=== PATIENT | male | born 1965 | race African-American/Black ===

== ENCOUNTER 2022-12-20 07:46 | Outpatient (AMB) | payer OTHER, SELFPAY ==
--- NOTE | 2022-12-20 07:47 | A.OFFPC_ITS ---
Vital Signs 12/20/22 07:48 Height 5 ft 5 in Weight 166 lb BMI 27.6 BP 144/82 H Blood Pressure Location Rt brachial Position Sitting Pulse 102 H Pulse Source Pulse Oximeter Pulse Oximetry (%) 97 Oxygen Delivery Method Room Air Intake Visit Reasons: Est care/ possible physical Intake Note: Patient did not know what meds he was taking. Called pharmacy and put in what was picked up in the last 30 days. Allergies No Known Allergies [No Known Allergies*] Allergy (Verified 05/12/20 07:19) Tobacco use date assessed: 12/20/22 Dental Screening Dental Screen Date: 12/20/22 Did you have a dental visit in the last 12 months?: Yes Did you have a dental problem in the last 6 months where you did not have access to dental care?: No Was dental information given to patient?: Patient has dentist HPI HPI Comments History of Present Illness Details 57-year-old male new patient past medical history significant for HTN, T2DM, hx substance abuse, anxiety, depression. Therapist q2week through [facility] and Psychiatrist [id number]. Patient states residential program through [facility]. Patient states has not had night sleep. Patient advised to follow up with psych. Patient brought lab results drawn from psychiatrist on 12/06/22 showed hgb a1c at 8.8%, patient reports previously on medication for diabetes but hasnt been on it since he was living on the streets. Lab work revealed tota cholesterol 292, LDL 215, HDL 29 and triglycerides of 239. Patient reporst past substance abuse of crack/cocaine last used 4 months ago. Patient reports white layer on penis, denies pain, itching or urinary symptoms. Likely miah infection R/T to uncontrolled DM. [facility] Surgical History No pertinent past surgical history Family History Father No problems noted. Mother No problems noted. Brother No problems noted. Sister No problems noted. Brother No problems noted. Brother No problems noted. Brother No problems noted. Sister No problems noted. Other Mental health disorder Substance use disorder Social History (Updated 12/20/22 @ 08:04 by KRISTINE Zhao) Housing: Other Alcohol intake: never Patient Tobacco Use Status: Current everyday Tobacco user Cigarette Packs Per Day: 0.5 e-Cigarette/Vaping Use: Never Used Second Hand Smoke Exposure: Yes Substance Use Type: Crack/Cocaine Current occupational status: disabled Current occupational exposures/hazards: No Cognitive needs: Yes Hearing needs: No Vision needs: No Questionnaire PHQ-9 Over the last 2 weeks, how often have you been bothered by any of the following problems? 1. Little interest or pleasure in doing things: several days 2. Feeling down, depressed, or hopeless: several days 3. Trouble falling or staying asleep, or sleeping too much: nearly every day 4. Feeling tired or having little energy: several days 5. Poor appetite or overeating: not at all 6. Feeling bad about yourself - or that you are a failure or have let yourself or your family down: not at all 7. Trouble concentrating on things, such as reading the newspaper or watching television: not at all 8. Moving or speaking so slowly that other people could have noticed. Or the opposite - being so fidgety or restless that you have been moving around a lot more than usual: not at all 9. Thoughts that you would be better off or of hurting yourself in some way: not at all Total score: 6 Depression Screening Interpretation: Positive 76180 - PHQ-9 Billing: Yes Source: Developed by Drs. Mehdi Randolph, Sabrina Gonzalez, Tutu Eckert and colleagues, with an educational camryn from [employer]. Thrive Questionnaire Date Thrive assessed: 12/20/22 I am a: Patient What is your living situation today?: I have a steady place to live Within the past 12 months, did the food you bought not last and you didn't have the money to get more?: Never true Within the past 12 months, did you worry whether your food would run out before you got money to buy more?: Never true Do you have trouble paying for medicines?: No Do you have trouble getting transportation to medical appointments?: No Do you have trouble paying your heating and electricity bill?: No Do you have trouble taking care of your child, family member or friend?: No Do you have trouble with day-to-day activities such as bathing, preparing meals, shopping, managing finances, etc.?: No Are you currently unemployed and looking for a job?: No Are you interested in more education?: No Currently or been in a relationship where the following occur: no concerns reported AUDIT C Alcohol Use Questionnaire (AUDIT-C) 1. How often do you have a drink containing alcohol?: Never 3. How often do you have six or more drinks on one occasion?: Never Total Score: 0 NORMA-7 AMB Questionnaire NORMA-7 Date NORMA - 7 assessed: 12/20/22 Feeling nervous, anxious, or on edge: 1 = Several days Not being able to stop or control worryin = Not at all Worrying too much about different things: 0 = Not at all Trouble relaxin = Not at all Being so restless that it is hard to sit still: 0 = Not at all Becoming easily annoyed or irritable: 0 = Not at all Feeling afraid as if something awful might happen: 0 = Not at all Total NORMA-7 score (0-4 normal; 5-9 mild; 10-14 moderate; 15-21 severe): 1 Source: Developed by Drs. Mehdi Randolph, Sabrina Gonzalez, Tutu Eckert and colleagues, with an educational camryn from [employer]. NORMA-7 Assessment Billing NORMA-7 Assessment Tool: NORMA-7 Assessment 82007 Review of Systems Const Denies chills, Denies fatigue, Denies fever(s) and Denies poor appetite Eyes Denies no additional complaints ENT Reports Normal hearing present Card Denies chest pain, Denies syncope, Denies rapid heart rate and Denies dyspnea Resp Denies cough and Denies dyspnea GI Denies change in stool character, Denies constipation, Denies diarrhea, Denies nausea and Denies vomiting Denies dysuria, Denies urinary frequency and Denies urinary urgency Skin/Breast Details: white mist under foreskin Neuro Reports Normal hearing present, Denies confusion and Denies syncope Psych Denies confusion Endo Denies fatigue Physical exam (Primary Care) Vital Signs: Last Vital Signs Pulse 102 H 12/20/22 07:48 BP 144/82 H 12/20/22 07:48 Pulse Ox 97 12/20/22 07:48 Oxygen Delivery Method Room Air 12/20/22 07:48 BMI result Body Mass Index 27.6 Tobacco/Smoking Status: Tobacco use Status Tobacco use date assessed 12/20/22 12/20/22 07:56 Patient Tobacco Use Status Current everyday Tobacco 12/20/22 08:04 e-Cigarette/Vaping Use Never Used 12/20/22 08:04 PHQ-9: PHQ-9 Score PHQ-9: Total score 6 12/20/22 08:26 Depression Screening Interpretation: Positive Thrive Assessment: Date of Thrive Assessment Date Thrive assessed 12/20/22 12/20/22 07:56 Currently or been in a relationship where the following occur: no concerns reported Const General: No confusion Orientation/consciousness: No confusion HENMT Head: Yes normocephalic and Yes atraumatic Eyes Conjunctivae: conjunctivae normal Chest Chest palpation & inspection: normal inspection of the chest Resp Effort & Inspection: normal respiratory effort Auscultation: clear to auscultation bilaterally, no crackles, no rhonchi and no wheezes Cardio Rate: regular rate Rhythm: regular rhythm Heart sounds: S1 normal heart sound present and S2 normal heart sound present GI Inspection: Yes normal to inspection Penis: uncircumcised Meatus: other (white coating under foreskin ) Neuro General: No confusion Cranial nerves: Yes Normal hearing present Extrem General: No edema Assessment and Plan Assessment & Plan (1) Type 2 diabetes mellitus: Code(s): E11.9 - Type 2 diabetes mellitus without complications Plan: Hemoglobin A1c 8.8%. Will start patient on metformin 500 mg daily and follow-up in 3 months (2) Depression: Code(s): F32.A - Depression, unspecified Plan: Continue to follow with and therapist and psychiatry. Continue on current medications. (3) Generalized anxiety disorder: Code(s): F41.1 - Generalized anxiety disorder Plan: Continue to follow with and therapist and psychiatry. Continue on current medications. (4) Hypertension: Code(s): I10 - Essential (primary) hypertension Plan: Continue on amlodipine 5 mg daily. Refill sent to patient's pharmacy. Follow low-salt diet and exercise. (5) Hyperlipidemia: Code(s): E78.5 - Hyperlipidemia, unspecified Plan: Refill sent on atorvastatin 40 mg daily. LDL goal less than 100. Repeat fasting blood work in 3 months (6) Candidal balanitis: Code(s): B37.42 - Candidal balanitis Plan: Clomitazole cream prescribed b.i.d. x2 weeks. Plan Follow-up in 3 months for physical exam. Orders: Orders Comprehensive [place]. Panel Fast 3 Months I10 - Essential (primary) hypertension Lipid Panel 3 Months Z13.220 - Encounter for screening for lipoid disorders Hemoglobin A1c 3 Months E11.9 - Type 2 diabetes mellitus without complications TSH reflex Free T4 3 Months Z13.29 - Encounter for screening for other suspected endocrine disorder Microalbumin, Random (w Creat) 3 Months E11.9 - Type 2 diabetes mellitus without complications Medications: New simvastatin 40 mg PO DAILY 30 tabs 3RF E78.5 - Hyperlipidemia, unspecified amlodipine 5 mg PO DAILY 30 tabs 3RF metformin 500 mg PO DAILY 30 tabs 3RF E11.9 - Type 2 diabetes mellitus without complications clotrimazole 1% x2 weeks 1 appl topical BID 30 grams 0RF B37.42 - Candidal balanitis Coding Level of Care Code New Pt Level 4 (61064) Diagnoses Type 2 diabetes mellitus E11.9 Depression F32.A Generalized anxiety disorder F41.1 Hypertension I10 Hyperlipidemia E78.5 Candidal balanitis B37.42 Additional Codes NORMA-7 Assessment Billing - NORMA-7 Assessment Tool: NORMA-7 Assessment 79436 ([id number])
[2022-12-20 07:48] VITALS: BP 144/82; PULSE 102; O2SAT 97; BMI 27.6
== END 2022-12-20 08:23 | disposition home or self-care (01) ==
PROVIDERS: PCP Nurse Practitioner Family; Visit Provider Nurse Practitioner Family
DX: Z00.00 Encounter for general adult medical examination without abnormal findings (principal); E11.9 Type 2 diabetes mellitus without complications; I10 Essential (primary) hypertension; F32.A Depression, unspecified; F41.1 Generalized anxiety disorder; E78.5 Hyperlipidemia, unspecified; B37.42 Candidal balanitis
CPT/HCPCS: 99386

== ENCOUNTER 2023-06-13 17:25 | Outpatient (AMB) | payer OTHER, SELFPAY ==
[2023-06-13 17:26] VITALS: BP 118/84; PULSE 80; O2SAT 95; BMI 29.0
--- NOTE | 2023-06-13 17:26 | MHC.PC.OV ---
Vital Signs 06/13/23 17:26 Height 5 ft 5 in Weight 174 lb BMI 29.0 BP 118/84 Blood Pressure Location Lt brachial Position Sitting Pulse 80 Pulse Source Pulse Oximeter Pulse Oximetry (%) 95 Oxygen Delivery Method Room Air Intake Visit Reasons: A1C Instructional Aide Required: No Accompanied by: Self / Same As Patient Allergies No Known Allergies [No Known Allergies*] Allergy (Verified 06/14/23 03:26) Medication List - Last Reconciled 06/14/23 by Higinio Jones MD amlodipine 5 mg PO DAILY atorvastatin 40 mg PO BEDTIME 90 days clotrimazole 1% 1 appl topical BID diphenhydramine HCl (Benadryl) 50 mg PO BEDTIME PRN lithium carbonate 600 mg PO BEDTIME lithium carbonate 150 mg PO BEDTIME metformin 500 mg PO DAILY mirtazapine 7.5 mg PO BEDTIME olanzapine 10 mg PO BEDTIME trazodone 50 mg PO BEDTIME PRN Tobacco use date assessed: 06/13/23 Dental Screening Dental Screen Date: 06/13/23 Did you have a dental visit in the last 12 months?: Yes Did you have a dental problem in the last 6 months where you did not have access to dental care?: No Was dental information given to patient?: Patient has dentist HPI A1C HPI Details Patient comes in today for his follow up visit He was a previous patient of Dr. Rubalcava but has not been back for follow up from 07/2019 through 12/2022 Between 07/2019 and 12/2022, he's had a few visits to the ER at [facility] for psychological issues, including threatening violence to others and suicidal ideation (running into traffic) Patient used to live in a shelter house but for approximately a period of 7 to 8 months back in 2021, was apparently living on the streets and was actively using crack cocaine and smoking marijuana as well as drinking alcohol although he denies any addiction and declined referral to detox when offered to him at the ER He was started on Simvastatin for high cholesterol and Metformin for elevated blood sugar when he was recently seen by [facility] back in December 2022 and he returns today for his follow up visit States that he had his follow up labs done at [facility] a couple of weeks ago He was reportedly staying at a residential program in [facility] last year and recently moved here to [place] He denies any headaches or dizziness lately Denies any chest pains, no shortness of breath No nausea / vomiting, no abdominal pain No change in bowel habits noted Adds that he has very thickened disfigured toenails on both of his big toes and they are starting to hurt - would like to see if he can his disfigured and painful toenails addressed [facility] Medical History (Updated 06/14/23 @ 04:18 by Higinio Jones MD) Insomnia Overweight (BMI 25.0-29.9) Smoker Bipolar depression Substance use disorder Essential hypertension Diabetes mellitus Mixed hyperlipidemia Surgical History No pertinent past surgical history Family History Father No problems noted. Mother No problems noted. Brother No problems noted. Sister No problems noted. Brother No problems noted. Brother No problems noted. Brother No problems noted. Sister No problems noted. Other Mental health disorder Substance use disorder Social History Housing: Other Alcohol intake: never Patient Tobacco Use Status: Current everyday Tobacco user Cigarette Packs Per Day: 0.5 e-Cigarette/Vaping Use: Never Used Second Hand Smoke Exposure: Yes Substance Use Type: Crack/Cocaine service: No Current occupational status: disabled Current occupational exposures/hazards: No Cognitive needs: Yes Hearing needs: No Vision needs: No Questionnaire PHQ-9 Over the last 2 weeks, how often have you been bothered by any of the following problems? 1. Little interest or pleasure in doing things: several days 2. Feeling down, depressed, or hopeless: several days 3. Trouble falling or staying asleep, or sleeping too much: nearly every day 4. Feeling tired or having little energy: several days 5. Poor appetite or overeating: not at all 6. Feeling bad about yourself - or that you are a failure or have let yourself or your family down: not at all 7. Trouble concentrating on things, such as reading the newspaper or watching television: not at all 8. Moving or speaking so slowly that other people could have noticed. Or the opposite - being so fidgety or restless that you have been moving around a lot more than usual: not at all 9. Thoughts that you would be better off or of hurting yourself in some way: not at all Total score: 6 Depression Screening Interpretation: Positive Depression Screening Follow-up: Existing condition and In treatment Depression Screening Done: Yes 83967 - PHQ-9 Billing: Yes Source: Developed by Drs. Mehdi Randolph, Sabrina Gonzalez, Tutu Eckert and colleagues, with an educational camryn from [email or web address]. Thrive Questionnaire Date Thrive assessed: 06/13/23 I am a: Patient What is your living situation today?: I have a steady place to live Within the past 12 months, did the food you bought not last and you didn't have the money to get more?: Never true Within the past 12 months, did you worry whether your food would run out before you got money to buy more?: Never true Do you have trouble paying for medicines?: No Do you have trouble getting transportation to medical appointments?: No Do you have trouble paying your heating and electricity bill?: No Do you have trouble taking care of your child, family member or friend?: No Do you have trouble with day-to-day activities such as bathing, preparing meals, shopping, managing finances, etc.?: No Are you currently unemployed and looking for a job?: No Are you interested in more education?: No Please select the resources that you would like help with: None Currently or been in a relationship where the following occur: no concerns reported THRIVE Score: 0 AUDIT C Alcohol Use Questionnaire (AUDIT-C) 1. How often do you have a drink containing alcohol?: Never (has not had alcohol in months) 3. How often do you have six or more drinks on one occasion?: Never Total Score: 0 Score Reviewed/Action Taken: Yes NORMA-7 AMB Questionnaire NORMA-7 Date NORMA - 7 assessed: 06/13/23 Feeling nervous, anxious, or on edge: 1 = Several days Not being able to stop or control worryin = Not at all Worrying too much about different things: 0 = Not at all Trouble relaxin = Not at all Being so restless that it is hard to sit still: 0 = Not at all Becoming easily annoyed or irritable: 0 = Not at all Feeling afraid as if something awful might happen: 0 = Not at all Total NORMA-7 score (0-4 normal; 5-9 mild; 10-14 moderate; 15-21 severe): 1 Source: Developed by Drs. Mehdi Randolph, Sabrina Gonzalez, Tutu Eckert and colleagues, with an educational camryn from [email or web address]. NORMA-7 Assessment Billing NORMA-7 Assessment Tool: NORMA-7 Assessment 45729 Review of Systems Const Denies chills, Reports fatigue, Denies fever(s) and Denies headache(s) ENT Denies dysphagia, Denies dizziness, Denies otalgia, Denies headache(s), Denies neck pain, Denies odynophagia and Denies sore throat Card Denies chest pain, Denies palpitations and Denies dyspnea Resp Denies cough and Denies dyspnea GI Denies abdominal pain, Denies constipation, Denies dysphagia, Denies heartburn, Denies diarrhea, Denies nausea, Denies odynophagia and Denies vomiting Denies dysuria, Denies nocturia and Denies urinary frequency Musc Denies neck pain Skin/Breast Details: (+) thick and disfigured toenails on both big toes - states that the toenails are starting to hurt recently as they become more disfigured Denies rash Neuro Denies dizziness and Denies headache(s) Endo Reports fatigue and Denies palpitations Physical exam (Primary Care) Vital Signs: Last Vital Signs Pulse 80 06/13/23 17:26 BP 118/84 06/13/23 17:26 Pulse Ox 95 06/13/23 17:26 Oxygen Delivery Method Room Air 06/13/23 17:26 BMI result Body Mass Index 29.0 Tobacco/Smoking Status: Tobacco use Status Tobacco use date assessed 06/13/23 06/13/23 17:31 Patient Tobacco Use Status Current everyday Tobacco 06/13/23 17:31 e-Cigarette/Vaping Use Never Used 06/13/23 17:31 PHQ-9: PHQ-9 Score PHQ-9: Total score 6 06/13/23 17:43 Depression Screening Interpretation: Positive Depression Screening Follow-up: Existing condition and In treatment Thrive Assessment: Date of Thrive Assessment Date Thrive assessed 06/13/23 06/13/23 17:31 Currently or been in a relationship where the following occur: no concerns reported Const General: no acute distress and alert HENMT Ears: TM's normal bilaterally and EAC's normal Throat: Yes posterior oropharynx normal and Yes tonsils normal (no TP congestion) Neck Neck: Yes no lymphadenopathy and Yes supple Resp Auscultation: clear to auscultation bilaterally, no rales and no wheezes Cardio Rate: regular rate Rhythm: regular rhythm Heart sounds: no murmurs GI Palpation (GI): Soft to palpation, nontender and No hepatosplenomegaly present Skin General skin exam: no rashes or lesions noted Extrem Other: (+) severe onycholysis of the toenails on both big toes General: Yes no clubbing, cyanosis or edema Assessment and Plan Assessment & Plan (1) Mixed hyperlipidemia: Code(s): E78.2 - Mixed hyperlipidemia Plan: Results of his labs done at [facility] a couple of weeks ago reviewed and discussed with patient - he is advised that his cholesterol levels have increased from previous Reinforced low cholesterol diet Patient states that he has been taking his Simvastatin 40 mg daily as prescribed although he reportedly has had issues with non-compliance with meds in the past Will try switching her from Simvastatin to Atorvastatin 40 mg QD for better efficacy Will have patient recheck his labs and fasting lipids in 3 months for follow up (2) Diabetes mellitus: Code(s): E11.9 - Type 2 diabetes mellitus without complications Qualifiers: Diabetes mellitus type: type 2 Diabetes mellitus fci insulin use: without entertainment production professional use Diabetes mellitus complication status: without complication Qualified Code(s): E11.9 - Type 2 diabetes mellitus without complications Plan: His HgbA1c was at 6.6% on his labs done a couple of weeks ago (was at 8.8% back in November 2022) - goal is <7.0% Reinforced diabetic diet Continue Metformin 500 mg QD (3) Essential hypertension: Code(s): I10 - Essential (primary) hypertension Plan: Reinforced low sodium diet - goal is systolic BP of 120 mm or less Continue Amlodipine 5 mg QD (4) Onychomycosis of toenail: Code(s): B35.1 - Tinea unguium Plan: Involving both big toes primarily Will refer him to podiatry for further evaluation and management and also for his diabetic foot exam (5) Substance use disorder: Code(s): F19.90 - Other psychoactive substance use, unspecified, uncomplicated Plan: (+) Hx of alcohol, marijuana and crack cocaine - states that he has been clean and sober for a few months now Denies any history of addiction or dependence and has not needed to go to detox He has been living in a residential program through [facility] in [place] and recently moved here to [place] (6) Insomnia: Code(s): G47.00 - Insomnia, unspecified Qualifiers: Insomnia type: unspecified Qualified Code(s): G47.00 - Insomnia, unspecified Plan: Sleep hygiene reinforced Continue Diphenhydramine 50 mg Q HS and Trazodone 50 mg Q HS He is also on Mirtazapine and Olanzapine at bedtime, which help as well (he has taken Zolpidem in the past) (7) Bipolar depression: Code(s): F31.9 - Bipolar disorder, unspecified Plan: Continue Olanzapine 10 mg Q HS, Mirtazapine 7.5 mg Q HS and [place] 750 mg (600 + 150 mg) QD Follow up with psychiatry as scheduled (8) Smoker: Code(s): F17.200 - Nicotine dependence, unspecified, uncomplicated Plan: Counseled on smoking cessation (9) Overweight (BMI 25.0-29.9): Code(s): E66.3 - Overweight Plan: Reinforced diet/exercise as tolerated/lose weight Plan Follow up in 3 months Orders: Orders Complete Blood Count Auto Diff 3 Months D64.9 - Anemia, unspecified Comprehensive [place]. Panel Fast 3 Months E78.00 - Pure hypercholesterolemia, unspecified TSH reflex Free T4 3 Months E78.00 - Pure hypercholesterolemia, unspecified Vitamin D 25-OH Total 3 Months E55.9 - Vitamin D deficiency, unspecified Microalbumin, Random (w Creat) 3 Months E11.9 - Type 2 diabetes mellitus without complications Lipid Panel 3 Months E78.00 - Pure hypercholesterolemia, unspecified Hemoglobin A1c 3 Months E11.9 - Type 2 diabetes mellitus without complications UA CC w/rflx Micro + Cult 3 Months R30.0 - Dysuria Referrals Podiatry Referral B35.1 - Tinea unguium Medications: New atorvastatin 40 mg PO BEDTIME 90 tabs 1RF 90 days Discontinued simvastatin Discontinued Reason: Doctor's Order 40 mg PO DAILY 30 tabs 3RF E78.5 - Hyperlipidemia, unspecified Coding Level of Care Code Est Pt Level 4 (30395) Diagnoses Mixed hyperlipidemia E78.2 Type 2 diabetes mellitus without complication, without long-term current use of insulin E11.9 Diabetes mellitus type: type 2 Diabetes mellitus entertainment production professional insulin use: without entertainment production professional use Diabetes mellitus complication status: without complication Essential hypertension I10 Onychomycosis of toenail B35.1 Substance use disorder F19.90 Insomnia, unspecified type G47.00 Insomnia type: unspecified Bipolar depression F31.9 Smoker F17.200 Overweight (BMI 25.0-29.9) E66.3 Additional Codes NORMA-7 Assessment Billing - NORMA-7 Assessment Tool: NORMA-7 Assessment [id number] ([id number])
== END 2023-06-13 17:44 | disposition home or self-care (01) ==
LOC: HO.HMGH 17:25
PROVIDERS: PCP Internal Medicine; Visit Provider Internal Medicine
DX: E78.2 Mixed hyperlipidemia (principal); E11.9 Type 2 diabetes mellitus without complications; F31.9 Bipolar disorder, unspecified; I10 Essential (primary) hypertension; B35.1 Tinea unguium; F19.90 Other psychoactive substance use, unspecified, uncomplicated; G47.00 Insomnia, unspecified; F17.210 Nicotine dependence, cigarettes, uncomplicated; E66.3 Overweight
CPT/HCPCS: 96127; 99214

== ENCOUNTER 2023-09-19 13:46 | Outpatient (AMB) | payer OTHER, SELFPAY ==
[2023-09-19 13:52] VITALS: BP 110/76; PULSE 92; O2SAT 96; BMI 27.5
--- NOTE | 2023-09-19 13:52 | MHC.PC.OV ---
Vital Signs 09/19/23 13:52 Height 5 ft 5 in Weight 165 lb 0.8 oz BMI 27.5 BP 110/76 Blood Pressure Location Lt brachial Position Sitting Pulse 92 Pulse Source Pulse Oximeter Pulse Oximetry (%) 96 Oxygen Delivery Method Room Air Intake Visit Reasons: yperlipidemia,onychomycosis,prediabetes,bipolar Intake Note: Patient is here to follow up Pattern Changer Required: No Allergies No Known Allergies [No Known Allergies*] Allergy (Verified 09/19/23 15:25) Medication List - Last Reconciled 09/19/23 by Higinio Jones MD amlodipine 5 mg PO DAILY atorvastatin 40 mg PO BEDTIME 90 days clotrimazole 1% 1 appl topical BID diphenhydramine HCl (Benadryl) 50 mg PO BEDTIME PRN lithium carbonate 600 mg PO BEDTIME lithium carbonate 150 mg PO BEDTIME melatonin 5 mg PO BEDTIME metformin 500 mg PO DAILY mirtazapine 7.5 mg PO BEDTIME olanzapine 10 mg PO BEDTIME trazodone 50 mg PO BEDTIME PRN zolpidem 5 mg PO BEDTIME PRN Tobacco use date assessed: 09/19/23 Dental Screening Dental Screen Date: 09/19/23 Did you have a dental visit in the last 12 months?: Yes Did you have a dental problem in the last 6 months where you did not have access to dental care?: No Was dental information given to patient?: Patient has dentist HPI yperlipidemia,onychomycosis,prediabetes,bipolar HPI Details Patient comes in today for his follow up visit States that he has a few issues that he would like to have addressed He has a recurrent rash on the left side of neck recently and would like to know if he can use Clotrimazole on the rash and if he can, will need this refilled States that he has trouble sleeping at night for a while now and [facility] is suggesting that he get a sleep study Adds that his ears feel full and most everything he hears nowadays are significantly muffled and decreased - would like to have his ears checked out States that he has been experiencing increased pain in his left shoulder lately - he does not recall any recent injury or trauma to his left shoulder He denies any headaches or dizziness Denies any chest pains, no SOB No nausea/vomiting, no abdominal pain No change in bowel habits noted Needs his Atorvastatin Rx refilled Had his follow up labs done at [facility] about 2 to 3 weeks ago - to discuss his results [facility] Medical History (Updated 11/03/23 @ 07:00 by Higinio Jones MD) Albuminuria Diabetes mellitus with albuminuria Insomnia Overweight (BMI 25.0-29.9) Smoker Bipolar depression Substance use disorder Essential hypertension Diabetes mellitus Mixed hyperlipidemia Surgical History No pertinent past surgical history Family History Father No problems noted. Mother No problems noted. Brother No problems noted. Sister No problems noted. Brother No problems noted. Brother No problems noted. Brother No problems noted. Sister No problems noted. Other Mental health disorder Substance use disorder Social History Housing: Other Alcohol intake: never Patient Tobacco Use Status: Current everyday Tobacco user Cigarette Packs Per Day: 0.5 e-Cigarette/Vaping Use: Never Used Second Hand Smoke Exposure: Yes Substance Use Type: Crack/Cocaine service: No Current occupational status: disabled Current occupational exposures/hazards: No Cognitive needs: Yes Hearing needs: No Vision needs: No Questionnaire Thrive Questionnaire Date Thrive assessed: 09/19/23 I am a: Patient What is your living situation today?: I have a steady place to live Within the past 12 months, did the food you bought not last and you didn't have the money to get more?: Never true Within the past 12 months, did you worry whether your food would run out before you got money to buy more?: Never true Do you have trouble paying for medicines?: No Do you have trouble getting transportation to medical appointments?: No Do you have trouble paying your heating and electricity bill?: No Do you have trouble taking care of your child, family member or friend?: No Do you have trouble with day-to-day activities such as bathing, preparing meals, shopping, managing finances, etc.?: No Are you currently unemployed and looking for a job?: No Are you interested in more education?: No Please select the resources that you would like help with: None Currently or been in a relationship where the following occur: no concerns reported THRIVE Score: 0 AUDIT C Alcohol Use Questionnaire (AUDIT-C) 1. How often do you have a drink containing alcohol?: Never (has not had alcohol in months) 3. How often do you have six or more drinks on one occasion?: Never Total Score: 0 Score Reviewed/Action Taken: Yes NORMA-7 AMB Questionnaire NORMA-7 Date NORMA - 7 assessed: 06/13/23 Source: Developed by Drs. Mehdi Randolph, Sabrina Gonzalez, Tutu Eckert and colleagues, with an educational camryn from [employer]. Review of Systems Const Denies chills, Reports difficulty sleeping, Denies fatigue, Denies fever(s) and Denies headache(s) ENT Denies dysphagia, Denies dizziness, Denies otalgia, Denies headache(s), Reports hearing loss (ears feel muffled/sounds he hears are significantly diminished), Denies neck pain, Denies odynophagia and Denies sore throat Card Denies chest pain, Denies palpitations and Denies dyspnea Resp Denies cough and Denies dyspnea GI Denies abdominal pain, Denies constipation, Denies dysphagia, Denies heartburn, Denies diarrhea, Denies nausea, Denies odynophagia and Denies vomiting Denies dysuria, Denies nocturia and Denies urinary frequency Musc Reports arthralgias (in the left shoulder lately) and Denies neck pain Skin/Breast Reports rash (recurrent over the left side of his neck) Neuro Denies dizziness and Denies headache(s) Endo Denies fatigue and Denies palpitations Physical exam (Primary Care) Vital Signs: Last Vital Signs Pulse 92 09/19/23 13:52 BP 110/76 09/19/23 13:52 Pulse Ox 96 09/19/23 13:52 Oxygen Delivery Method Room Air 09/19/23 13:52 BMI result Body Mass Index 27.5 Tobacco/Smoking Status: Tobacco use Status Tobacco use date assessed 09/19/23 09/19/23 13:53 Patient Tobacco Use Status Current everyday Tobacco 09/19/23 13:53 e-Cigarette/Vaping Use Never Used 09/19/23 13:53 Thrive Assessment: Date of Thrive Assessment Date Thrive assessed 09/19/23 09/19/23 13:53 Currently or been in a relationship where the following occur: no concerns reported Const General: no acute distress and alert HENMT Ears: Abnormal EAC present cerumen impaction bilateral and unable to visualize TM bilaterally Throat: Yes posterior oropharynx normal and Yes tonsils normal (no TP congestion) Neck Neck: Yes no lymphadenopathy and Yes supple Thyroid: Thyroid normal Resp Auscultation: clear to auscultation bilaterally, no rales and no wheezes Cardio Rate: regular rate Rhythm: regular rhythm Heart sounds: no murmurs GI Palpation (GI): Soft to palpation and nontender Auscultation: normal bowel sounds General: Yes no CVA tenderness Back/Spine/Pelvis Back: no CVA tenderness Thoracic/Lumbar Spine: No lumbar spinal tenderness Skin Rashes: rashes noted (small, slightly hypopigmented patch of rash on the left side of the neck) Extrem General: Yes no clubbing, cyanosis or edema Left upper extremity: shoulder/upper arm Details: tenderness Location: of the A-C joint and normal ROM; no swelling Results AMB Hemoglobin A1c AMB Hemoglobin A1c 10.6 % Last Edit by LUIS FERNANDO Smyth on 09/19/23 14:56 Results Reviewed Results Reviewed: Laboratory Last Values Hgb A1c (Clinic) 10.6 % (4.0-6.0) H 09/19/23 13:54 Assessment and Plan Assessment & Plan (1) Mixed hyperlipidemia: Code(s): E78.2 - Mixed hyperlipidemia Plan: Results of his labs done at [facility] Labs 2 to 3 weeks ago reviewed and discussed with patient Reinforced low cholesterol diet Continue Atorvastatin 40 mg QD - Rx refilled Will recheck his labs and fasting lipids in 3 months for follow up (2) Diabetes mellitus: Code(s): E11.9 - Type 2 diabetes mellitus without complications Qualifiers: Diabetes mellitus complication status: without complication Diabetes mellitus exterminator termite insulin use: without exterminator termite use Diabetes mellitus type: type 2 Qualified Code(s): E11.9 - Type 2 diabetes mellitus without complications Plan: His in-office HgbA1c today is at 10.6% (HgbA1c was at 6.6% back in May 2023) - goal is <7.0% Reinforced diabetic diet Will increase his Metformin from 500 mg QD to 1000 mg BID (3) Essential hypertension: Code(s): I10 - Essential (primary) hypertension Plan: Reinforced low sodium diet - goal is systolic BP of 120 mm or less Continue Amlodipine 5 mg QD (4) Left shoulder pain: Code(s): M25.512 - Pain in left shoulder Qualifiers: Chronicity: unspecified Qualified Code(s): M25.512 - Pain in left shoulder Plan: Will send him for x-rays of the left shoulder for further evaluation (5) Dermatitis: Code(s): L30.9 - Dermatitis, unspecified Plan: Have advised patient to try applying Clotrimazole 1% cream to his recurrent neck rash BID and to call if this does not clear up the rash over the next couple of weeks (6) Impacted cerumen of both ears: Code(s): H61.23 - Impacted cerumen, bilateral Plan: Will start patient on Debrox ear drops - have instructed him to apply about 5 drops or fill up his ears with the ear drops BID for at least 7 days Have also instructed him on self-irrigating his ears while he is in the shower daily for a couple of weeks to help clean out his ears and instructed him to call if he does not experience any significant improvement of his ear symptoms (7) Substance use disorder: Code(s): F19.90 - Other psychoactive substance use, unspecified, uncomplicated Plan: (+) Hx of alcohol, marijuana and crack cocaine - states that he has been clean and sober for several months now He denies any history of addiction or dependence and has not needed to go to detox He has been living in a residential program through [facility] in [place] and recently moved here to [place] (8) Insomnia: Code(s): G47.00 - Insomnia, unspecified Qualifiers: Insomnia type: unspecified Qualified Code(s): G47.00 - Insomnia, unspecified Plan: Sleep hygiene reinforced Continue Diphenhydramine 50 mg Q HS and Trazodone 50 mg Q HS He is also on Mirtazapine and Olanzapine at bedtime, which help as well (he has taken Zolpidem in the past) States that [facility] is recommending he speak to his PCP about being referred for a sleep study Have advised patient that insomnia and sleep disorders/apnea are 2 completely different issues and a sleep study is used to diagnosed or check for sleep apnea and NOT insomnia At this point, am not sure why [facility] is suggesting he get a sleep study unless the one who recommended this is misinformed about what a sleep study is actually for Will go ahead and refer him to Sleep Medicine for further evaluation and management BUT again advised patient that unless they see a need for a sleep study, it will not be performed just for insomnia (9) Bipolar depression: Code(s): F31.9 - Bipolar disorder, unspecified Plan: Continue Olanzapine 10 mg Q HS, Mirtazapine 7.5 mg Q HS and Mansura 750 mg (600 + 150 mg) QD Follow up with psychiatry at [facility] as scheduled (10) Smoker: Code(s): F17.200 - Nicotine dependence, unspecified, uncomplicated Plan: Counseled again on smoking cessation (11) Overweight (BMI 25.0-29.9): Code(s): E66.3 - Overweight Plan: Reinforced diet/exercise as tolerated/lose weight Plan Follow up in 3 months Orders: Orders Complete Blood Count Auto Diff 3 Months D64.9 - Anemia, unspecified TSH reflex Free T4 3 Months E78.00 - Pure hypercholesterolemia, unspecified AMB Hemoglobin A1c 24 E11.9 - Type 2 diabetes mellitus without complications XR shoulder LT min 2V 24 M25.512 - Pain in left shoulder Hemoglobin A1c 3 Months E11.9 - Type 2 diabetes mellitus without complications Comprehensive [place]. Panel Fast 3 Months E78.00 - Pure hypercholesterolemia, unspecified Lipid Panel 3 Months E78.00 - Pure hypercholesterolemia, unspecified Microalbumin, Random (w Creat) 3 Months E11.9 - Type 2 diabetes mellitus without complications UA CC w/rflx Micro + Cult 3 Months R30.0 - Dysuria Vitamin D 25-OH Total 3 Months E55.9 - Vitamin D deficiency, unspecified Referrals Sleep Medicine Referral G47.9 - Sleep disorder, unspecified Medications: New carbamide peroxide 6.5% (Debrox) 5 drps otic (ears) DAILY 15 mL 0RF 7 days Changed From metformin 500 mg PO DAILY 30 tabs 3RF E11.9 - Type 2 diabetes mellitus without complications To metformin 1,000 mg PO BID 60 tabs 5RF 30 days E11.9 - Type 2 diabetes mellitus without complications Refilled atorvastatin 40 mg PO BEDTIME 90 tabs 3RF 90 days clotrimazole 1% x2 weeks 1 appl topical BID 30 grams 0RF B37.42 - Candidal balanitis Coding Level of Care Code Est Pt Level 4 (80509) Complex EM visit Add On G2211 Diagnoses Mixed hyperlipidemia E78.2 Type 2 diabetes mellitus without complication, without long-term current use of insulin E11.9 Diabetes mellitus complication status: without complication Diabetes mellitus custodial insulin use: without custodial use Diabetes mellitus type: type 2 Essential hypertension I10 Left shoulder pain, unspecified chronicity M25.512 Chronicity: unspecified Dermatitis L30.9 Impacted cerumen of both ears H61.23 Substance use disorder F19.90 Insomnia, unspecified type G47.00 Insomnia type: unspecified Bipolar depression F31.9 Smoker F17.200 Overweight (BMI 25.0-29.9) E66.3
== END 2023-09-19 15:48 | disposition home or self-care (01) ==
PROVIDERS: PCP Internal Medicine; Visit Provider Internal Medicine
DX: E11.9 Type 2 diabetes mellitus without complications (principal)
CPT/HCPCS: 83036; 99214; G2211

== ENCOUNTER 2023-12-26 16:45 | Outpatient (AMB) | payer OTHER, SELFPAY ==
[2023-12-26 17:01] VITALS: BP 140/90; PULSE 78; O2SAT 99; BMI 28.0
--- NOTE | 2023-12-26 17:01 | MHC.PC.OV ---
Vital Signs 12/26/23 17:01 Height 5 ft 5 in Weight 168 lb 8 oz BMI 28.0 BP 140/90 H Blood Pressure Location Lt brachial Position Sitting Pulse 78 Pulse Source Pulse Oximeter Pulse Oximetry (%) 99 Oxygen Delivery Method Room Air Intake Visit Reasons: physical Allergies No Known Allergies [No Known Allergies*] Allergy (Verified 12/26/23 17:10) Medication List - Last Reconciled 12/26/23 by Higinio Jones MD amlodipine 5 mg PO DAILY atorvastatin 40 mg PO BEDTIME 90 days clotrimazole 1% 1 appl topical BID diphenhydramine HCl (Benadryl) 50 mg PO BEDTIME PRN lithium carbonate 600 mg PO BEDTIME lithium carbonate 150 mg PO BEDTIME melatonin 5 mg PO BEDTIME metformin 1,000 mg PO BID 30 days mirtazapine 7.5 mg PO BEDTIME olanzapine 10 mg PO BEDTIME trazodone 50 mg PO BEDTIME PRN zolpidem 5 mg PO BEDTIME PRN Tobacco use date assessed: 09/19/23 Dental Screening Dental Screen Date: 09/19/23 HPI physical HPI Details Patient comes in today for his annual physical examination States that he has been experiencing a slight on and off headache today but otherwise feels okay States that he does not usually get headaches; he denies any dizziness Denies any chest pains, no SOB No nausea/vomiting, no abdominal pain No change in bowel habits noted He denies any acute urinary symptoms He was not able to get his follow up labs done yet He also has never had a screening colonoscopy done in the past and still does not wish to have one done [facility] Medical History (Updated 12/27/23 @ 03:46 by Higinio Jones MD) Chronic kidney disease, stage III (moderate) Albuminuria Diabetes mellitus with albuminuria Insomnia Overweight (BMI 25.0-29.9) Smoker Bipolar depression Substance use disorder Essential hypertension Diabetes mellitus Mixed hyperlipidemia Surgical History No pertinent past surgical history Family History Father No problems noted. Mother No problems noted. Brother No problems noted. Sister No problems noted. Brother No problems noted. Brother No problems noted. Brother No problems noted. Sister No problems noted. Other Mental health disorder Substance use disorder Social History Housing: Other Alcohol intake: never Patient Tobacco Use Status: Current everyday Tobacco user Cigarette Packs Per Day: 0.5 e-Cigarette/Vaping Use: Never Used Second Hand Smoke Exposure: Yes Substance Use Type: Crack/Cocaine service: No Current occupational status: disabled Current occupational exposures/hazards: No Cognitive needs: Yes Hearing needs: No Vision needs: No Questionnaire Thrive Questionnaire Date Thrive assessed: 09/19/23 NORMA-7 AMB Questionnaire NORMA-7 Date NORMA - 7 assessed: 06/13/23 Source: Developed by Drs. Mehdi Randolph, Sabrina Gonzalez, Tutu Eckert and colleagues, with an educational camryn from [employer]. Review of Systems Const Denies chills, Denies fatigue, Denies fever(s), Reports headache(s) (on and off today), Denies malaise and Denies weakness Eyes Denies blurry vision, Denies change in vision, Denies irritation and Denies itchy eyes ENT Denies dysphagia, Denies dizziness, Denies otalgia, Reports headache(s) (on and off today), Denies nasal congestion, Denies neck pain, Denies odynophagia and Denies sore throat Card Denies chest pain, Denies rapid heart rate, Denies irregular heart rhythm, Denies palpitations and Denies dyspnea Resp Denies chest congestion, Denies cough, Denies dyspnea and Denies wheezing GI Denies abdominal pain, Denies bloating, Denies constipation, Denies dysphagia, Denies heartburn, Denies diarrhea, Denies nausea, Denies odynophagia and Denies vomiting Denies hematuria, Denies difficulty urinating, Denies dysuria, Denies urinary frequency and Denies urinary urgency Musc Denies back pain, Denies arthralgias, Denies joint swelling, Denies muscle weakness and Denies neck pain Skin/Breast Denies change in pigmentation, Denies lesions, Denies rash and Denies unusual bruising Neuro Denies dizziness, Reports headache(s) (on and off today), Denies paresthesias and Denies weakness Endo Denies fatigue and Denies palpitations Aller/Immun Denies itchy eyes and Denies wheezing Physical exam (Primary Care) Vital Signs: Last Vital Signs Pulse 78 12/26/23 17:01 BP 140/90 H 12/26/23 17:01 Pulse Ox 99 12/26/23 17:01 Oxygen Delivery Method Room Air 12/26/23 17:01 BMI result Body Mass Index 28.0 Tobacco/Smoking Status: Tobacco use Status Tobacco use date assessed 09/19/23 12/26/23 17:04 Patient Tobacco Use Status Current everyday Tobacco 12/26/23 17:04 e-Cigarette/Vaping Use Never Used 12/26/23 17:04 Thrive Assessment: Date of Thrive Assessment Date Thrive assessed 09/19/23 12/26/23 17:04 Const General: no acute distress, alert and awake Orientation/consciousness: patient oriented x3 HENMT Head: Yes normocephalic and Yes atraumatic Ears: external ears normal, TM's normal bilaterally and EAC's normal (although (+) cerumen noted in both ear canals) General nose exam: No nasal discharge present Face and sinus: Yes normal facial exam and Yes sinuses nontender Teeth and gingiva: dentition normal Throat: Yes posterior oropharynx normal and Yes tonsils normal (no TP congestion) Eyes Eyelids: Yes eyelids normal Conjunctivae: conjunctivae normal Pupils: Equal, round and reactive pupils present EOM: EOMs intact bilaterally Neck Neck: Yes no lymphadenopathy and Yes supple Thyroid: Thyroid normal Resp Auscultation: clear to auscultation bilaterally, no rales and no wheezes Cardio Rate: regular rate Rhythm: regular rhythm Heart sounds: no murmurs GI Palpation (GI): Soft to palpation, nontender and No hepatosplenomegaly present Auscultation: normal bowel sounds General: Yes no CVA tenderness Back/Spine/Pelvis Back: no CVA tenderness Thoracic/Lumbar Spine: thoracic and lumbar spine normal to inspection Skin Lesions: no lesions Rashes: no rashes Neuro General: patient oriented x3, moves all extremities, no focal motor deficits and CN's II-XI intact bilaterally Cranial nerves: Yes Equal, round and reactive pupils present Cognition (Neuro): normal cognition Gait exam (Neuro): Normal gait present Extrem General: Yes no clubbing, cyanosis or edema Results AMB Hemoglobin A1c AMB Hemoglobin A1c 5.9 % Last Edit by KIKI Jimenez on 12/26/23 17:11 Results Reviewed Results Reviewed: Laboratory Last Values Hgb A1c (Clinic) 5.9 % (4.0-6.0) 12/26/23 16:56 Assessment and Plan Assessment & Plan (1) Annual physical exam: Code(s): Z00.00 - Encounter for general adult medical examination without abnormal findings Plan: Check labs - patient is instructed to just use his previous lab orders and get them done [facility] as has not had any follow-up labs done here since 2019 He states that he prefers to get them done at [facility] (closer to home) - lab orders are printed out and handed over to patient today He has never had a screening colonoscopy done in the past (by choice) and still does not wish to do so but agreed to get Cologuard testing done if it is covered by his insurance - Cologuard test ordered today (2) Mixed hyperlipidemia: Code(s): E78.2 - Mixed hyperlipidemia Plan: Reinforced low cholesterol diet Continue Atorvastatin 40 mg QD Will recheck his labs and fasting lipids FLAKO for follow up - patient will just be using his previous lab orders and get them done [facility]KO (3) Diabetes mellitus: Code(s): E11.9 - Type 2 diabetes mellitus without complications Qualifiers: Diabetes mellitus type: type 2 Diabetes mellitus joint terminal attack controller insulin use: without fdc use Diabetes mellitus complication status: without complication Qualified Code(s): E11.9 - Type 2 diabetes mellitus without complications Plan: His in-office HgbA1c today is at 5.9% (was at 10.6% just a few months ago) - goal is <7.0% Reinforced diabetic diet Continue Metformin 1000 mg BID Will also refer him to Ophthalmology for his annual diabetic eye exam (4) Essential hypertension: Code(s): I10 - Essential (primary) hypertension Plan: Reinforced low sodium diet - goal is systolic BP of 120 mm or less Continue Amlodipine 5 mg QD (5) Substance use disorder: Code(s): F19.90 - Other psychoactive substance use, unspecified, uncomplicated Plan: (+) Hx of alcohol, marijuana and crack cocaine - states that he has been clean and sober for several months now He denies any history of addiction or dependence and has not needed to go to detox He has been living in a residential program through [facility] in [place] and now has his own place (6) Insomnia: Code(s): G47.00 - Insomnia, unspecified Qualifiers: Insomnia type: unspecified Qualified Code(s): G47.00 - Insomnia, unspecified Plan: Sleep hygiene reinforced Continue Diphenhydramine 50 mg Q HS and Trazodone 50 mg Q HS He is also on Mirtazapine and Olanzapine at bedtime, which help as well (he has taken Zolpidem in the past) [facility] has supposedly recommended that he speak to his PCP about being referred for a sleep study - he was previously referred to and is now scheduled to be seen by Sleep Medicine on 05/08/2024 (7) Bipolar depression: Code(s): F31.9 - Bipolar disorder, unspecified Plan: Continue Olanzapine 10 mg Q HS, Mirtazapine 7.5 mg Q HS and Kamiah 750 mg (600 + 150 mg) QD Follow up with psychiatry at [facility] as scheduled (8) Smoker: Code(s): F17.200 - Nicotine dependence, unspecified, uncomplicated Plan: Counseled again on smoking cessation (9) Overweight (BMI 25.0-29.9): Code(s): E66.3 - Overweight Plan: Reinforced diet/exercise as tolerated/lose weight (10) Colon cancer screening: Code(s): Z12.11 - Encounter for screening for malignant neoplasm of colon Plan: Patient continues to decline referral for screening colonoscopy but agrees to get Cologuard testing done if it is covered by his insurance - Cologuard test ordered Plan Follow up in 4 months Orders: Orders AMB Hemoglobin A1c 12/26/23 E11.29 - Type 2 diabetes mellitus with other diabetic kidney complication, R80.9 - Proteinuria, unspecified Referrals Cologuard Test Z12.11 - Encounter for screening for malignant neoplasm of colon Ophthalmology Referral E11.9 - Type 2 diabetes mellitus without complications Review Patient declined Colonoscopy: 12/26/23 Coding Level of Care Code Est Pt Prev Care 40-64y(54187) Diagnoses Annual physical exam Z00.00 Mixed hyperlipidemia E78.2 Type 2 diabetes mellitus without complication, without long-term current use of insulin E11.9 Diabetes mellitus type: type 2 Diabetes mellitus joint terminal attack controller insulin use: without joint terminal attack controller use Diabetes mellitus complication status: without complication Essential hypertension I10 Substance use disorder F19.90 Insomnia, unspecified type G47.00 Insomnia type: unspecified Bipolar depression F31.9 Smoker F17.200 Overweight (BMI 25.0-29.9) E66.3 Colon cancer screening Z12.11
== END 2023-12-26 17:20 | disposition home or self-care (01) ==
PROVIDERS: PCP Internal Medicine; Visit Provider Internal Medicine
DX: E11.29 Type 2 diabetes mellitus with other diabetic kidney complication (principal); R80.9 Proteinuria, unspecified
CPT/HCPCS: 83036; 99396

== ENCOUNTER 2024-02-06 12:03 | Outpatient (AMB) | payer OTHER, SELFPAY ==
--- NOTE | 2024-02-06 12:11 | MHC.OFFVIS ---
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 Automatic Stacker Required: No Allergies No Known Allergies [No Known Allergies*] Allergy (Verified 02/06/24 12:11) HPI Comments Details: 58y/o male comes for sleep evaluation . Main complaints- snoring insomnia Sleep questionnaire- Difficulty falling asleep-yes Difficulty staying asleep-yes Number of [id number] Snoring-yes Witnessed apneas-no Gasping arousals-yes Nocturia-yes GERD-no Vivid dreams-no Acting out dreams -no Abnormal behavior in sleep-no ABnormal movements in sleep-no Morning headaches-sometimes Excessive daytime sleepiness-yes Daytime naps- no restless legs- no Hallucinations- no sleep paralysis- no Drop attacks- no Sleep study-no Sleep Hygiene- Sleep time 11 pm - has trouble falling asleep He has h/o heavy alcohol use - he stopped 5 mths ago and is in a recovery program [facility] Medical History (Updated 02/06/24 @ 12:30 by Alison Bautista MD) Snoring Hypersomnia Insomnia Chronic kidney disease, stage III (moderate) Albuminuria Diabetes mellitus with albuminuria Insomnia Overweight (BMI 25.0-29.9) Smoker Bipolar depression Substance use disorder Essential hypertension Diabetes mellitus Mixed hyperlipidemia Surgical History No pertinent past surgical history Family History Father No problems noted. Mother No problems noted. Brother No problems noted. Sister No problems noted. Brother No problems noted. Brother No problems noted. Brother No problems noted. Sister No problems noted. Other Mental health disorder Substance use disorder Social History Housing: Other Alcohol intake: never Patient Tobacco Use Status: Current everyday Tobacco user Cigarette Packs Per Day: 0.5 e-Cigarette/Vaping Use: Never Used Second Hand Smoke Exposure: Yes Substance Use Type: Crack/Cocaine service: No Current occupational status: disabled Current occupational exposures/hazards: No Cognitive needs: Yes Hearing needs: No Vision needs: No Physical Exam Vital Signs: Last Vital Signs Pulse 92 02/06/24 12:12 Resp 16 02/06/24 12:12 BP 130/78 02/06/24 12:12 Pulse Ox 96 02/06/24 12:12 Oxygen Delivery Method Room Air 02/06/24 12:12 BMI result Body Mass Index 28.6 ALert awake oriented X3 Mood- stable Speech- normal Cognition- normal Const General: cooperative, healthy appearing and comfortable Nutritional Appearance: average body habitus Orientation/consciousness: patient oriented x3 Neuro Other: Mallampatti grade 4 General: patient oriented x3, tone normal, moves all extremities and no focal motor deficits Cranial nerves: Yes Bilaterally intact EOM present, Yes Nystagmus not present, Yes Normal facial strength present and Yes Midline tongue present Assessment & Plan Assessment & Plan (1) Insomnia: Code(s): G47.00 - Insomnia, unspecified Category: Medical (2) Hypersomnia: Code(s): G47.10 - Hypersomnia, unspecified Category: Medical (3) Snoring: Code(s): R06.83 - Snoring Category: Medical Plan I will do a home sleep test to evaluate for sleep apnea. discussed sleep hygiene in detail Orders: Orders RT home sleep study Today G47.00 - Insomnia, unspecified, G47.10 - Hypersomnia, unspecified, R06.83 - Snoring Coding Level of Care Code New Pt Level 4 (46821) Diagnoses Insomnia G47.00 Hypersomnia G47.10 Snoring R06.83 [place] Sleepiness Scale Questions Sitting and reading: slight chance of dozing Watching TV: slight chance of dozing Sitting inactive in a theater, movie etc.: slight chance of dozing As a passenger in a car for an hour without break: slight chance of dozing Lying down in the afternoon when circumstances permit: moderate chance of dozing Sitting and talking to someone: slight chance of dozing Sitting quietly after lunch without alcohol: slight chance of dozing In a car, while stopped for a few minutes in the traffic: slight chance of dozing ESS < 10: normal, ESS > 12: pathologic: 9
[2024-02-06 12:12] VITALS: BP 130/78; PULSE 92; RESP 16; O2SAT 96; BMI 28.6
== END 2024-02-06 12:34 | disposition home or self-care (01) ==
PROVIDERS: Absent Provider Psychiatry & Neurology Neurology; PCP Internal Medicine; Visit Provider Psychiatry & Neurology Neurology
DX: G47.00 Insomnia, unspecified (principal); G47.10 Hypersomnia, unspecified; R06.83 Snoring
CPT/HCPCS: 99204

== ENCOUNTER → 2024-02-06 12:03 | Outpatient (BNVA) | payer OTHER, SELFPAY | PROVIDERS: Absent Provider Psychiatry & Neurology Neurology; PCP Internal Medicine; Visit Provider Psychiatry & Neurology Neurology | DX: G47.00 Insomnia, unspecified (principal); G47.10 Hypersomnia, unspecified; R06.83 Snoring | CPT/HCPCS: 99202 ==

== ENCOUNTER 2024-05-20 15:46 | Outpatient (AMB) | payer OTHER, SELFPAY ==
--- OUTSIDE RECORDS SUMMARY | 2024-05-20 15:48 | XMS_ITS ---
Author Organization [facility] Address [address], [place] [id number] Care Team Providers Care Post Exchange Manager Name Role Phone [facility] [place], [facility] Primary Care Provider Unavailable Kiat Bear Unavailable Encounters Encounter Location Date Provider Diagnosis [facility] [address] [place] [phone] 02/13/2024 Kait Bear Plan Of Treatment No Information Progress Notes * Vladimir GONZALEZ EDOB:1965 (58 yo M)Acc No.[id number]:02/13/2024 Case Management Patient:?Vladimir Gonzalez Provider:?Kait Bear :1965???Age:58 Y???Sex:Male Evans e:02/13/2024 Address:[address] [place], [place] [id number] Pcp:[facility] Subjective: * Chief Complaints: * ??? * HPI: ???Social Service:?Referral Source?returning client.? Client came in still in program and seeking low income housing called to check on status at [facility] was informed they were not on the list.Client will redo the application. * Medical History:? Objective: Assessment: Plan: * Treatment: * Images: Billing Information: * Visit Code:? * Procedure Codes:? Care Plan Details* * Sign off status: Completed true * Provider:?Kait Bear Date:? Generated for Jessica lee/Jasiel/Giannaitting on:?05/20/2024 03:48 PM EST History and Physical Notes * HPI (History of Present Illness) Category Sub-Category Detail Notes Social Service Referral Source returning client
--- OUTSIDE RECORDS SUMMARY | 2024-05-20 15:48 | XMS_ITS | Patient Health Record ---
Author Organization [facility] Address [address] [place], [place] [phone] Care Team Providers Care Well Reactivator Operator Name Role Phone [facility] [place], [facility] Primary Care Provider Unavailable Kait Bear Unavailable [phone] Yobany Vazquez Unavailable [phone] Reason For Referral No Information Medications Medication SIG (Take, Route, Frequency, Duration) Notes Start Date End Date Status atorvastatin 20 mg 1 tab(s) orally once a day for 30 day(s) 11/14 NO refills 09/09/2016 Active lisinopril 5 mg 1 tab(s) orally once a day for 30 day(s) 12/15/2016 Active Melatonin 5 mg 1 - 2 tab(s) orally once (at bedtime) for 30 days 11/28/2016 Active hydrOXYzine hydrochloride 25 mg 1 tab(s) orally 3 times a day PRN 08/06 NO refill Active metFORMIN 500 mg 1 tab(s) orally 2 times a day for 30 days 11/14 3 refill Active hydroCHLOROthiazide 25 mg 1 tab(s) orall y once a day for 30 days 11/09 NO refills Active Seroquel 300 mg 1 tab(s) orally @ H S 11/14 1 refill Active Depakote ER 500 mg 1 tab(s) orally bid 08/06 NO refill Active Immunizations Vaccine Route Administration Date Status Comme nts Twinrix Hep A/Hep B Unknown 02/16/2010 Administered hx [facility] Hepatitis B (20 or more) Unknown 03/19/2010 Administered hx [place] [facility] Hepatitis B (20 or more) Unknown 07/19/2010 Administered hx [place] [facility] Influenza Unknown 03/07/2011 Administered hx [place] [facility] Hepatitis A IM Intramuscular 11/28/2016 Administered Social History Tobacco Use: Social History Observation Description Date Details (start date - stop date) Current Smoker NA - NA Tobacco Use Assessment MU Question Answer Notes What is your current smoking status? current smo ker How often do you smoke? every day How many cigarettes a day do you smoke? 6-10 How soon after you wake up do you smoke your fir st cigarette? 6-30 minutes Are you interested in quitting? 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 Problem Alcohol abuse (11726541) Alcohol abuse, uncomplicated (F10.10) Active confirmed Problem Cocaine abuse (81835173) Cocaine abuse, uncomplicated (F14.10) Active confirmed Problem Tobacco user (039817791) Nicotine dependence, unspecified, uncomplicated (F17.200) Active confirmed Problem Insomnia (891953984) Insomnia, unspecified (G47.00) Active confirmed Problem Essential hypertensi on (55036995) Essential (primary) hypertension (I10) Active confirmed Problem Normal body mass ind ex (16743956) Body mass index (BMI) 22.0-22.9, adult (Z68.22) Active confirmed Problem Pure hypercholesterolemia (002002845) Pure hypercholestero lemia, unspecified (E78.00) Active confirmed Encounters Encounter Location Date Provider Diagnosis [facility] [address] [place] [id number] 11/07/2023 Kait Bear [facility] [phone] 05/30/2023 Kait Bear [facility] [id number] 05/24/2023 Kait Bear [facility] [address] [place] [id number] 06/06/2023 Kait Bear [facility] [id number] 06/12/2023 Kait Whalen-Usman [facility] [address], [place] [phone] 06/16/2023 Kait Whalen-Usman [facility] [address], [place] [phone] 06/23/2023 Kait Whalen-Usman [facility] [address], [place] [id number] 07/14/2023 Kait Whalen[facility]Usman [facility] [address], [place] [phone] 07/11/2023 Yobany Vazquez [facility] [address], [place] [phone] 07/21/2023 Kait Whalen-Usman [facility] [address], [place] [phone] 09/08/2023 Kait Whalen[facility]Usman [facility] [address], [place] [phone] 09/21/2023 Kait Whalen-Usman [facility] [address], [place] [phone] 09/28/2023 Kait Whalen-Usman [facility] [address] [place] [phone] 10/13/2023 Kait Whalen-Usman [facility] [address], [place] [phone] 10/27/2023 Kiat Whalen-Usman [facility] [address], [place] [phone] 10/31/2023 Kait Whalen-Usman [facility] [address], [place] [phone] 11/14/2023 Kait Whalen-Usman [facility] [address], [place] [id number] 12/18/2023 Kait Whalen-Usman [facility] [address], [place] [phone] 01/12/2024 Kait Whalen[facility]Usman [facility] [address], [place] [phone] 01/16/2024 Kait Whalen-Usman [facility] [address], [place] [phone] 01/26/2024 Kait GaonaUsman [facility] [address], [place] [id number] 02/02/2024 Kait Bear [facility] [address], [place] [id number] 02/09/2024 Kait Bear [facility] [address], [place] [phone] 02/13/2024 Kait Bear [facility] [address], [place] [phone] 03/11/2024 Kait Bear Plan Of Treatment Pending Test Test Name Order Date Blood Sugar/finger stick 08/25/2016 PPD (Tuberculosis skin test) 05/13/2016 Insurance Providers Payer Name Payer Address Payer Phone Subscriber Number Group Number Insured Name Patient Relationship to Insured Coverage Start Date Coverage End Date [place] Standard [address] [place] [phone] [id number] Vladimir Vizcarra Self - patient is the insured Medical (General) History Medical History History ICD Code tobacco use depression w/anxiety elevated cholesterol Hx crack use hx bipolar hx htn-03/2016 on HCTZ 25mg hx ETOH 4..2016 ASCVD 10 year risk 35.8% Surgical History Surgery Date(Month/Year) inguinal hernia repair, bilat as child hernia repair 1977 Hospitalization History Reason Date(Month/Year) [facility] 03/2015 [facility] 02/2015 [facility], hernia repair
--- OUTSIDE RECORDS SUMMARY | 2024-05-20 15:48 | XMS_ITS ---
Author Organization [facility] Address [address], [place] [id number] Care Team Providers Care Tape Deck Installer Name Role Phone [facility] [place], [facility] Primary Care Provider Unavailable Kait Bear Unavailable Encounters Encounter Location Date Provider Diagnosis [facility] [address] [place] [phone] 05/03/2024 Kait Bear Plan Of Treatment No Information Progress Notes * Vladimir GONZALEZ EDOB:1965 (58 yo M)Acc No.[id number]:05/03/2024 Case Management Patient:?Vladmiir GONZALEZ Provider:?Kait Bear :1965???Age:58 Y???Sex:Male Evans e:05/03/2024 Address:[address] [place], [place] [id number] Pcp:[facility] Subjective: * Chief Complaints: * ??? * Medical History:? Objective: Assessment: Plan: * Treatment: * Images: Billing Information: * Visit Code:? * Procedure Codes:? Care Plan Details* * Electronic signature of Jonny Bear on 05/20/2024 at 03:48 PM EST Sign off status: Pending * Provider:Wilfrido Bear Date:? Generated for Jessica lee/Jasiel/eTransmitting on:?05/20/2024 03:48 PM EST
--- OUTSIDE RECORDS SUMMARY | 2024-05-20 15:48 | XMS_ITS ---
Author Organization [facility] Address [address], [place] [id number] Care Team Providers Care Us Administrative Law Judge Name Role Phone [facility] [place], [facility] Primary Care Provider Unavailable Kait Bear Unavailable [phone] Medications Medication SIG (Take, Route, Frequency, Duration) Notes Start Date End Date Status atorvastatin 20 mg 1 tab(s) orally once a day for 30 day(s) 11/14 NO refills 09/09/2016 Active lisinopril 5 mg 1 tab(s) orally once a day for 30 day(s) 12/15/2016 Active Melatonin 5 mg 1 - 2 tab(s) orally once (at bedtime) for 30 days 11/28/2016 Active metFORMIN 500 mg 1 tab(s) orally 2 times a day for 30 days 11/14 3 refill Active hydroCHLOROthiazide 25 mg 1 tab(s) orall y once a day for 30 days 11/09 NO refills Active hydrOXYzine hydrochloride 25 mg 1 tab(s) orally 3 times a day PRN 08/06 NO refill Active Seroquel 300 mg 1 tab(s) orally @ [facility] 11/14 1 refill Active Depakote ER 500 mg 1 tab(s) orally bid 08/06 NO refill Active Encounters Encounter Location Date Provider Diagnosis [facility] [address] [place] [phone] 03/11/2024 Kait Bear Plan Of Treatment No Information Progress Notes * Vladimir GONZALEZ EDOB:1965 (58 yo M)Acc No.[id number]:03/11/2024 Case Management Patient:?Vladimir GONZALEZ Provider:?Kait Bear :1965???Age:58 Y???Sex:Male Evans e:03/11/2024 Address:[address] [place], [place] [address], [id number] Pcp:[facility] Subjective: * Chief Complaints: * ??? * HPI: ???Social Service:?Referral Source?returning client.?Interpretation for medical provider?housing.? client came in seeking assistance with filling out section 8 application.client stated they were interested in the [employer] and would. * Medical History:? * Medications:?Taking hydrOXYz ine hydrochloride 25 mg tablet 1 tab(s) orally 3 times a day PRN , Notes to Pharmacist: 08/06 NO refill, Taking Seroquel 300 mg tablet 1 tab(s) orally @ [facility] , Notes to Pharmacist: 11/14 1 refill, Taking Depakote ER 500 mg tablet, extended release 1 tab(s) orally bid , Notes to Pharmacist: 08/06 NO refill, Taking metFORMIN 500 mg tablet 1 tab(s) orally 2 times a day , Notes to Pharmacist: 11/14 3 refill, Taking hydroCHLOROthiazide 25 mg tablet 1 tab(s) orally once a day , Notes to Pharmacist: 11/09 NO refills, Taking lisinopril 5 mg tablet 1 tab(s) orally once a day , Taking Melatonin 5 mg capsule 1 - 2 tab(s) orally once (at bedtime) , Taking atorvastatin 20 mg tablet 1 tab(s) orally once a day , Notes to Pharmacist: 11/14 NO refills Objective: Assessment: Plan: * Treatment: * Images: Billing Information: * Visit Code:? * Procedure Codes:? Care Plan Details* * Electronic signature of Jonny bogdan Bear on 05/20/2024 at 03:48 PM EST Sign off status: Pending * Provider:Wilfrido Bear Date:? Generated for Jessica lee/Jasiel/Sonido on:?05/20/2024 03:48 PM EST History and Physical Notes * HPI (History of Present Illness) Category Sub-Category Detail Notes Social Service Referral Source returning client Interpretation for medical provider chio ing
--- NOTE | 2024-05-20 15:49 | A.OFFPC_ITS ---
Vital Signs 05/20/24 15:50 Height 5 ft 5 in Weight 177 lb BMI 29.5 BP 122/90 H Blood Pressure Location Lt brachial Position Sitting Pulse 90 Pulse Source Pulse Oximeter Temp 97.9 F Temp Source Oral Pulse Oximetry (%) 93 Oxygen Delivery Method Room Air Intake Visit Reasons: 4 MONTH Manager Party Required: No Accompanied by: Self / Same As Patient Allergies No Known Allergies [No Known Allergies*] Allergy (Verified 05/20/24 16:02) Medication List - Last Reconciled 05/20/24 by ELIZABETH Green amlodipine 5 mg PO DAILY atorvastatin 40 mg PO BEDTIME 90 days clotrimazole 1% 1 appl topical BID lithium carbonate 600 mg PO BEDTIME melatonin 5 mg PO BEDTIME metformin 1,000 mg PO BID olanzapine 10 mg PO BEDTIME zolpidem 10 mg PO BEDTIME PRN Tobacco use date assessed: 05/20/24 Dental Screening Dental Screen Date: 05/20/24 Did you have a dental visit in the last 12 months?: Yes Did you have a dental problem in the last 6 months where you did not have access to dental care?: No Was dental information given to patient?: Patient has dentist HPI 4 MONTH HPI Details Patient is a 58-year-old male with significant past medical history of type 2 diabetes, chronic kidney disease, bipolar disease disorder, essential hypertension and mixed hyperlipidemia The patient is here for a follow-up appointment. He is a patient of Dr. Jones, last seen on 12/26/23 Patient reports he was not able to complete his follow up blood work. He is willing to get his labs done as soon as possible. Prior, the patient was getting his blood work done at a different facility. The patient reports that he is willing to get his labs done at [facility] if it is easier to obtain the results. A new set of labs were ordered-the patient report that he would try to get this done on Monday. He reports that he has been feeling well, and he has been clean of all substances. He denies chest pain, denies shortness of breath, denies dizziness, denies heart palpitation He denies changes in bowel movement and urinary symptoms. He denies changes in vision. He reports that he checks his feet when he can; he would like a podiatry referral, reporting that his previous delive[facility] Medical History (Updated 05/23/24 @ 05:41 by Higinio Jones MD) Snoring Hypersomnia Insomnia Chronic kidney disease, stage III (moderate) Albuminuria Diabetes mellitus with albuminuria Insomnia Overweight (BMI 25.0-29.9) Smoker Bipolar depression Substance use disorder Essential hypertension Diabetes mellitus Mixed hyperlipidemia Surgical History No pertinent past surgical history Family History Father No problems noted. Mother No problems noted. Brother No problems noted. Sister No problems noted. Brother No problems noted. Brother No problems noted. Brother No problems noted. Sister No problems noted. Other Mental health disorder Substance use disorder Social History Housing: Other Alcohol intake: never Patient Tobacco Use Status: Current everyday Tobacco user Cigarette Packs Per Day: 0.5 e-Cigarette/Vaping Use: Never Used Second Hand Smoke Exposure: Yes Substance Use Type: Crack/Cocaine service: No Current occupational status: disabled Current occupational exposures/hazards: No Cognitive needs: Yes Hearing needs: No Vision needs: No Questionnaire PHQ-9 Over the last 2 weeks, how often have you been bothered by any of the following problems? 1. Little interest or pleasure in doing things: several days 2. Feeling down, depressed, or hopeless: several days 3. Trouble falling or staying asleep, or sleeping too much: nearly every day 4. Feeling tired or having little energy: several days 5. Poor appetite or overeating: not at all 6. Feeling bad about yourself - or that you are a failure or have let yourself or your family down: not at all 7. Trouble concentrating on things, such as reading the newspaper or watching television: not at all 8. Moving or speaking so slowly that other people could have noticed. Or the opposite - being so fidgety or restless that you have been moving around a lot more than usual: not at all 9. Thoughts that you would be better off or of hurting yourself in some way: not at all Total score: 6 Depression Screening Interpretation: Positive Depression Screening Follow-up: Existing condition and In treatment Depression Screening Done: Yes 42137 - PHQ-9 Billing: Yes Source: Developed by Drs. Mehdi Randolph, Sabrina Gonzalez, Tutu Eckert and colleagues, with an educational camryn from [employer]. Thrive Questionnaire Date Thrive assessed: 05/20/24 I am a: Patient What is your living situation today?: I have a steady place to live Within the past 12 months, did the food you bought not last and you didn't have the money to get more?: Never true Within the past 12 months, did you worry whether your food would run out before you got money to buy more?: Never true Do you have trouble paying for medicines?: No Do you have trouble getting transportation to medical appointments?: No Do you have trouble paying your heating and electricity bill?: No Do you have trouble taking care of your child, family member or friend?: No Do you have trouble with day-to-day activities such as bathing, preparing meals, shopping, managing finances, etc.?: No Are you currently unemployed and looking for a job?: No Are you interested in more education?: No Please select the resources that you would like help with: None Currently or been in a relationship where the following occur: No concerns reported THRIVE Score: 0 AUDIT C Alcohol Use Questionnaire (AUDIT-C) 1. How often do you have a drink containing alcohol?: Never (has not had alcohol in months) 3. How often do you have six or more drinks on one occasion?: Never Total Score: 0 Score Reviewed/Action Taken: Yes NORMA-7 AMB Questionnaire NORMA-7 Date NORMA - 7 assessed: 05/20/24 Feeling nervous, anxious, or on edge: 0 = Not at all Not being able to stop or control worryin = Not at all Worrying too much about different things: 0 = Not at all Trouble relaxin = Not at all Being so restless that it is hard to sit still: 0 = Not at all Becoming easily annoyed or irritable: 0 = Not at all Feeling afraid as if something awful might happen: 0 = Not at all Total NORMA-7 score (0-4 normal; 5-9 mild; 10-14 moderate; 15-21 severe): 0 Source: Developed by Sabrina Haddad B.W. Carlos, Tutu Eckert and colleagues, with an educational camryn from [employer]. NORMA-7 Assessment Billing NORMA-7 Assessment Tool: NORMA-7 Assessment 12593 Review of Systems Const Details: Const Denies chills, Denies fatigue, Denies fever(s), Denies headache(s) and Denies weakness ENT Denies dizziness and Denies headache(s) Card Denies chest pain, Denies lightheadedness, Denies dyspnea and Denies other (Palpitations) Resp Denies cough, Denies dyspnea, Denies wheezing and Denies other ( shortness of breath) GI Denies abdominal pain, Denies melena, Denies hematochezia, Denies change in bowel habits, Denies dyspepsia and Denies nausea Denies hematuria and Denies dysuria Musc Denies abnormal gait, Denies myalgias, Denies arthralgias, Denies numbness and Denies tingling Skin/Breast Denies rash, Denies unusual bruising and Denies wounds, reports overgrown toenails on bilateral feet Neuro Denies abnormal gait, Denies dizziness, Denies headache(s), Denies memory loss, Denies numbness, Denies Sensory deficit (Neuro), Denies tingling and Denies weakness Psych Denies anxiety, Denies depression, Denies memory loss Endo Denies cold intolerance, Denies fatigue, Denies heat intolerance, Denies polydipsia and Denies polyuria Aller/Immun Denies wheezing Physical exam (Primary Care) Vital Signs: Last Vital Signs Temp 97.9 F 05/20/24 15:50 Pulse 90 05/20/24 15:50 BP 122/90 H 05/20/24 15:50 Pulse Ox 93 05/20/24 15:50 Oxygen Delivery Method Room Air 05/20/24 15:50 BMI result Body Mass Index 29.5 Tobacco/Smoking Status: Tobacco use Status Tobacco use date assessed 05/20/24 05/20/24 15:52 Patient Tobacco Use Status Current everyday Tobacco 05/20/24 15:52 e-Cigarette/Vaping Use Never Used 05/20/24 15:52 PHQ-9: PHQ-9 Score PHQ-9: Total score 6 05/20/24 16:11 Depression Screening Interpretation: Positive Depression Screening Follow-up: Existing condition and In treatment Thrive Assessment: Date of Thrive Assessment Date Thrive assessed 05/20/24 05/20/24 15:52 Currently or been in a relationship where the following occur: No concerns reported Const Other: General: no acute distress and well developed Nutritional Appearance: well nourished Orientation/consciousness: patient oriented x3 [facility] Head: Yes normocephalic and Yes atraumatic Eyes General: appearance normal, both eyes and all related structures Pupils: Equal, round and reactive pupils present EOM: EOMs intact bilaterally Resp Effort & Inspection: normal respiratory effort Auscultation: clear to auscultation bilaterally Cardio Rate: regular rate Rhythm: regular rhythm Heart sounds: S1 normal heart sound present, S2 normal heart sound present, no gallops, no murmurs and no rubs GI Palpation (GI): No Abdominal aortic bruit present, Soft to palpation, nontender, No hepatosplenomegaly present and No Rebound tenderness present Auscultation: normal bowel sounds General: Yes no CVA tenderness Back/Spine/Pelvis Back: no CVA tenderness Cervical Spine: cervical ROM normal and No Cervical spine tenderness Thoracic/Lumbar Spine: thoraco-lumbar ROM normal, No pain with thoraco-lumbar ROM, No thoracic spinal tenderness and No lumbar spinal tenderness Extrem General: Yes normal to inspection, No edema and No calf tenderness Skin General: warm and dry. Normal skin color. Normal skin turgor Lesions: no lesions Rashes: no rashes Trauma: no lacerations or abrasions Wounds: no wounds Nails: Overgrown toenails on bilateral feet, worse on great toes Neuro General: patient oriented x3, gait normal and no focal neuro deficit Cranial nerves: Yes Equal, round and reactive pupils present Cognition (Neuro): normal cognition Gait exam (Neuro): Normal gait present Sensory Exam: No Sensory deficit (Neuro) Psych Appearance: grossly normal Affect: normal affect Attitude: cooperative Thought process: Normal thought process present Results AMB Hemoglobin A1c AMB Hemoglobin A1c 6.5 % Last Edit by LUIS FERNANDO Jara on 05/20/24 16 :12 Results Reviewed Results Reviewed: Laboratory Last Values Hgb A1c (Clinic) 6.5 % (4.0-6.0) H 05/20/24 15:52 Laboratory Tests 05/20/24 15:52 Hgb A1c (Clinic) 6.5 H Coding Level of Care Code Est Pt Level 4 (11968) Diagnoses Essential hypertension I10 Type 2 diabetes mellitus without complication, without long-term current use of insulin E11.9 Diabetes mellitus complication status: without complication Diabetes mellitus half-way insulin use: without half-way use Diabetes mellitus type: type 2 Mixed hyperlipidemia E78.2 Overgrown toenails L60.2 Snoring R06.83 Insomnia, unspecified type G47.00 Insomnia type: unspecified Smoker F17.200 Bipolar depression F31.9 Substance use disorder F19.90 Overweight (BMI 25.0-29.9) E66.3 Additional Codes NORMA-7 Assessment Billing - NORMA-7 Assessment Tool: NORMA-7 Assessment 10845 ([id number]) PHQ-9 - 33396 - PHQ-9 Billing: Yes ([id number]) Assessment & Plan Assessment & Plan (1) Essential hypertension: Code(s): I10 - Essential (primary) hypertension Category: Medical Plan: CONTINUE AMLODIPINE 5 MG DAILY Reinforced DASH diet (2) Diabetes mellitus: Code(s): E11.9 - Type 2 diabetes mellitus without complications Category: Medical Qualifiers: Diabetes mellitus complication status: without complication Diabetes mellitus intermission coordinator insulin use: without intermission coordinator use Diabetes mellitus type: type 2 Qualified Code(s): E11.9 - Type 2 diabetes mellitus without complicat ions Plan: The patient A1c was 6.5 % in office today, it was 5.9 on previous visit. Dietary restriction and medication compliance encouraged Continue Metformin 1000 mg BID The patient was reminded that his A1c was 10.6 % around 8 months ago so he should be careful even though his A1c is within goal. (3) Mixed hyperlipidemia: Code(s): E78.2 - Mixed hyperlipidemia Category: Medical Plan: No recent labs to compare Patient is encouraged to get labs done as soon as possible. Continue atorvastatin 40 mg at bedtime Will have him recheck his labs and fasting lipids again in 3 months for follow up (4) Overgrown toenails: Code(s): L60.2 - Onychogryphosis Category: Medical Plan: Referred to podiatry (5) Snoring: Code(s): R06.83 - Snoring Category: Medical Plan: Keep appointment with Neurology and sleep He was seen by sleep medicine a few months ago and a home sleep study was ordered - no report is available for review at this time (6) Insomnia: Code(s): G47.00 - Insomnia, unspecified Category: Medical Qualifiers: Insomnia type: unspecified Qualified Code(s): G47.00 - Insomnia, unspecified Plan: Reinforced sleep hygiene Continue melatonin 5 mg and zolpidem 10 mg at bedtime p.r.n. (7) Smoker: Code(s): F17.200 - Nicotine dependence, unspecified, uncomplicated Category: Social Hx Plan: Encouraged smoking cessation (8) Bipolar depression: Code(s): F31.9 - Bipolar disorder, unspecified Category: Medical Plan: Continue olanzapine 10 mg at bedtime, lithium 600 mg p.o. at bedtime Follow up with Psychiatry as scheduled at [facility] (9) Substance use disorder: Code(s): F19.90 - Other psychoactive substance use, unspecified, uncomplicated Category: Medical Plan: Patient has a history of alcohol, marijuana, and crack cocaine use He has been living in a residential program through [facility] and in [place] and now has his own place Reports that he has been clean of all substances for several months now Applaud patient for his efforts (10) Overweight (BMI 25.0-29.9): Code(s): E66.3 - Overweight Category: Medical Plan: Diet/exercise discussed in detail Encouraged to exercise for at least 30 minutes a day/5 days a week Healthy eating discussed. Encouraged to eat fruits/vegetables, protein- fish/baked chicken, and to avoid salty/fried foods, sweets, caffeine and carbohydrates. Encouraged to increase water intake 6-8 glasses a day Plan Follow up in 3 months Orders: Orders AMB Hemoglobin A1c 05/20/24 Higinio Jones MD Z13.9 - Encounter for karol paz, unspecified Lipid Panel 05/20/24 KRISTINE Green-Rik E11.29 - Type 2 diabetes mellitus with other diabetic kidney complication, E78.5 - Hyperlipidemia, unspecified, F17.200 - Nicotine dependence, unspecified, uncomplicated, F19.90 - Other psychoactive substance use, unspecified, uncomplicated, G47.00 - Insomnia, unspecified, I10 - Essential (primary) hypertension, N18.30 - Chronic kidney disease, stage 3 unspecified, R06.83 - Snoring, R80.9 - Proteinuria, unspecified, Z00.00 - Encounter for general adult medical examination without abnormal findings Glucose Fasting 05/20/24 ELIZABETH Green E11.29 - Type 2 diabetes mellitus with other diabetic kidney complication, E78.5 - Hyperlipidemia, unspecified, F17.200 - Nicotine dependence, unspecified, uncomplicated, F19.90 - Other psychoactive substance use, unspecified, uncomplicated, G47.00 - Insomnia, unspecified, I10 - Essential (primary) hypertension, N18.30 - Chronic kidney disease, stage 3 unspecified, R06.83 - Snoring, R80.9 - Proteinuria, unspecified, Z00.00 - Encounter for general adult medical examination without abnormal findings Hemoglobin A1c 05/20/24 ELIZABETH Green E11.29 - Type 2 diabetes mellitus with other diabetic kidney complication, E78.5 - Hyperlipidemia, unspecified, F17.200 - Nicotine dependence, unspecified, uncomplicated, F19.90 - Other psychoactive substance use, unspecified, uncomplicated, G47.00 - Insomnia, unspecified, I10 - Essential (primary) hypertension, N18.30 - Chronic kidney disease, stage 3 unspecified, R06.83 - Snoring, R80.9 - Proteinuria, unspecified, Z00.00 - Encounter for general adult medical examination without abnormal findings Lipid Panel 3 Months Higinio Jones MD E78.00 - Pure hypercholesterolemia, unspecified Microalbumin, Random (w Creat) 3 Months Higinio Jones MD E11.9 - Type 2 diabetes mellitus without complications Complete Blood Count Auto Diff 3 Months Higinio Jones MD D64.9 - Anemia, unspecified Comprehensive [place]. Panel Fast 3 Months Higinio Jones MD E78.00 - Pure hypercholesterolemia, unspecified UA CC w/rflx Micro + Cult 3 Months Higinio Jones MD R30.0 - Dysuria Vitamin D 25-OH Total 3 Months Higinio Jones MD E55.9 - Vitamin D deficiency, unspecified Complete Blood Count Auto Diff 05/20/24 ELIZABETH Green E11.29 - Type 2 diabetes mellitus with other diabetic kidney complication, E78.5 - Hyperlipidemia, unspecified, F17.200 - Nicotine dependence, unspecified, uncomplicated, F19.90 - Other psychoactive substance use, unspecified, unc omplicated, G47.00 - Insomnia, unspecified, I10 - Essential (primary) hypertension, N18.30 - Chronic kidney disease, stage 3 unspecified, R06.83 - Snoring, R80.9 - Proteinuria, unspecified, Z00.00 - Encounter for general adult medical examination without abnormal findings Comprehensive [place]. Panel Fast 05/20/24 ELIZABETH Green E11.29 - Type 2 diabetes mellitus with other diabetic kidney complication, E78.5 - Hyperlipidemia, unspecified, F17.200 - Nicotine dependence, unspecified, uncomplicated, F19.90 - Other psychoactive substance use, unspecified, uncomplicated, G47.00 - Insomnia, unspecified, I10 - Essential (primary) hypertension, N18.30 - Chronic kidney disease, stage 3 unspecified, R06.83 - Snoring, R80.9 - Proteinuria, unspecified, Z00.00 - Encounter for general adult medical examination without abnormal findings Microalbumin, Random (w Creat) 05/20/24 ELIZABETH Green E11.29 - Type 2 diabetes mellitus with other diabetic kidney complication, E78.5 - Hyperlipidemia, unspecified, F17.200 - Nicotine dependence, unspecified, uncomplicated, F19.90 - Other psychoactive substance use, unspecified, uncomplicated, G47.00 - Insomnia, unspecified, I10 - Essential (primary) hypertension, N18.30 - Chronic kidney disease, stage 3 unspecified, R06.83 - Snoring, R80.9 - Proteinuria, unspecified, Z00.00 - Encounter for general adult medical examination without abnormal findings TSH reflex Free T4 05/20/24 ELIZABETH Green E11.29 - Type 2 diabetes mellitus with other diabetic kidney complication, E78.5 - Hyperlipidemia, unspecified, F17.200 - Nicotine dependence, unspecified, uncomplicated, F19.90 - Other psychoactive substance use, unspecified, uncomplicated, G47.00 - Insomnia, unspecified, I10 - Essential (primary) hypertension, N18.30 - Chronic kidney disease, stage 3 unspecified, R06.83 - Snoring, R80.9 - Proteinuria, unspecified, Z00.00 - Encounter for general adult medical examination without abnormal findings UA CC w/rflx Micro + Cult 05/20/24 ELIZABETH Green E11.29 - Type 2 diabetes mellitus with other diabetic kidney complication, E78.5 - Hyperlipidemia, unspecified, F17.200 - Nicotine dependence, unspecified, uncomplicated, F19.90 - Other psychoactive substance use, unspecified, uncomplicated, G47.00 - Insomnia, unspecified, I10 - Essential (primary) hypertension, N18.30 - Chronic kidney disease, stage 3 unspecified, R06.83 - Snoring, R80.9 - Proteinuria, unspecified, Z00.00 - Encounter for general adult medical examination without abnormal findings Vitamin D 25-OH Total 05/20/24 ELIZABETH Green E11.29 - Type 2 diabetes mellitus with other diabetic kidney complication, E78.5 - Hyperlipidemia, un specified, F17.200 - Nicotine dependence, unspecified, uncomplicated, F19.90 - Other psychoactive substance use, unspecified, uncomplicated, G47.00 - Insomnia, unspecified, I10 - Essential (primary) hypertension, N18.30 - Chronic kidney disease, stage 3 unspecified, R06.83 - Snoring, R80.9 - Proteinuria, unspecified, Z00.00 - Encounter for general adult medical examination without abnormal findings PSA,Total (Free>4and<10) 05/20/24 ELIZABETH Green E11.29 - Type 2 diabetes mellitus with other diabetic kidney complication, E78.5 - Hyperlipidemia, unspecified, F17.200 - Nicotine dependence, unspecified, uncomplicated, F19.90 - Other psychoactive substance use, unspecified, uncomplicated, G47.00 - Insomnia, unspecified, I10 - Essential (primary) hypertension, N18.30 - Chronic kidney disease, stage 3 unspecified, R06.83 - Snoring, R80.9 - Proteinuria, unspecified, Z00.00 - Encounter for general adult medical examination without abnormal findings Hemoglobin A1c 3 Months Higinio Jones MD E11.9 - Type 2 diabetes mellitus without complications TSH reflex Free T4 3 Months Higinio Jones MD E78.00 - Pure hypercholesterolemia, unspecified Referrals Podiatry Referral ELIZABETH Green E11.9 - Type 2 diabetes mellitus without complications, L60.2 - Onychogryphosis Medications: Refilled amlodipine 5 mg PO DAILY 90 tabs 1RF ELIZABETH Green atorvastatin 40 mg PO BEDTIME 90 days 90 tabs 3RF ELIZABETH Green metformin 1,000 mg PO BID 180 tabs 1RF ELIZABETH Green E11.9 - Type 2 diabetes mellitus without complications clotrimazole 1% x2 weeks 1 appl topical BID 30 grams 0RF ELIZABETH Green B37.42 - Candidal balanitis
[2024-05-20 15:50] VITALS: BP 122/90; PULSE 90; TEMP 36.6; O2SAT 93; BMI 29.5
== END 2024-05-20 16:23 | disposition home or self-care (01) ==
PROVIDERS: PCP Internal Medicine; Visit Provider Internal Medicine
DX: Z13.9 Encounter for screening, unspecified (principal)

== ENCOUNTER → 2024-05-20 15:46 | Outpatient (BNVA) | payer OTHER, SELFPAY | PROVIDERS: PCP Internal Medicine; Visit Provider Internal Medicine | DX: I10 Essential (primary) hypertension (principal); E11.9 Type 2 diabetes mellitus without complications; E78.2 Mixed hyperlipidemia; L60.2 Onychogryphosis; R06.83 Snoring; G47.00 Insomnia, unspecified; F31.9 Bipolar disorder, unspecified; F19.90 Other psychoactive substance use, unspecified, uncomplicated; E66.3 Overweight; Z68.29 Body mass index [BMI] 29.0-29.9, adult; F17.200 Nicotine dependence, unspecified, uncomplicated; Z71.3 Dietary counseling and surveillance; Z71.6 Tobacco abuse counseling | CPT/HCPCS: 83036; 96127; 99212 ==

== ENCOUNTER 2024-06-17 12:23 | Outpatient (REF) | payer OTHER, SELFPAY ==
[2024-06-17 12:55] LABS: MANUAL DIFF FLAG NO
[2024-06-17 13:25] LABS: Basophils Percent Auto 0.4 % (0-2); Eosinophils Absolute Auto 0.3 X10*3/uL (0.0-0.4); Eosinophils Percent Auto 3.1 % (0-4); Hematocrit 44.2 % (42.0-52.0); Hemoglobin 13.9 g/dl (14.0-18.0); Imm Gran Abs Auto 0.05 X10*3/uL (0.00-0.03); Imm Gran Pct Auto 0.5 % (0.0-0.4); Lymphocytes Absolute Auto 1.7 X10*3/uL (1.2-4.9); Lymphocytes Percent Auto 17.9 % (20-40); Mean Corpuscular HGB Conc 31.4 g/dl (31.0-36.0); Mean Corpuscular Hemoglobin 28.8 pg (27.0-33.0); Mean Corpuscular Volume 91.7 fL (80.0-98.0); Mean Platelet Volume 9.8 fL (9.4-12.4); Monocytes Absolute Auto 0.7 X10*3/uL (0.1-1.2); Monocytes Percent Auto 6.9 % (2-11); Neutrophils Absolute Auto 6.7 x10*3/uL (2.0-8.3); Neutrophils Percent Auto 71.2 % (45-73); Platelet Count 283 X10*3/uL (160-400); Red Blood Count 4.82 X10*6/uL (4.60-5.80); Red Cell Distribution Width 12.8 % (11.0-16.0); White Blood Count 9.4 X10*3/uL (4.8-10.8)
[2024-06-17 13:26] LABS: Appearance Urine Clear; Color Urine Yellow; Glucose Urine UA Negative (Negative); Leukocyte Esterase Urine Negative (Negative); Nitrite Urine Negative (Negative); PH 6.5 (5.0-9.0); UMIC TRIGGER UACC YES; Urine Blood Negative (Negative); Urine Ketones Negative (Negative); Urine Protein 100 (2+) mg/dL (Neg-Trace)
[2024-06-17 13:30] LABS: Estimated Average Glucose 143 mg/dL; Hemoglobin A1C 171.9429 umol/L; Hemoglobin A1c % 6.6 % (<6.0); Total Hemoglobin (HGBA1C) 3560.0897 umol/L
[2024-06-17 13:33] LABS: Bacteria Urine None Seen (None Seen); Hyaline Casts Urine 0-2 /LPF (0-2); RBC Urine 0-2 /HPF (0-2); Squamous Epithelial Cell Urine 0-2 /HPF (0-2); WBC Urine 0-5 /HPF (0-5)
[2024-06-17 14:02] LABS: Creatinine Urine 64.97 mg/dL
[2024-06-17 14:09] LABS: Alanine Aminotransferase 20 U/L (0-40); Albumin Level 4.3 g/dL (3.5-5.0); Alkaline Phosphatase 101 U/L (39-117); Anion Gap 11 (12-20); Aspartate Amino Transferase 17 U/L (5-37); Bilirubin Total 0.7 mg/dL (0.0-1.0); Blood Urea Nitrogen 11 mg/dL (9-16); Calcium 9.6 mg/dL (8.4-10.2); Carbon Dioxide 28 mmol/L (22-29); Chloride 104 mmol/L (96-108); Cholesterol 161 mg/dL (<200); Estimated Glomerular Filt Rate > 60; Glucose Fasting 182 mg/dL (60-99); HDL Cholesterol 24 mg/dL (>40); LDL Cholesterol Calculated 75 mg/dL (<100); Potassium 3.8 mmol/L (3.3-5.1); Sodium 139 mmol/L (135-145); TSH reflex Free T4 0.89 uIU/mL (0.32-4.0); Total Protein 7.9 g/dL (6.5-8.0); Triglycerides 312 mg/dL (<150); Vitamin D 25-OH Total 7.8 ng/mL (>30)
[2024-06-17 14:16] LABS: Microalbum/Creatinine Ratio Ur 908.1 ug/mg cr (<30)
[2024-06-17 14:16] LABS: PSA,Total (Free>4and<10) 5.02 ng/mL (0.00-4.00)
--- OUTSIDE RECORDS SUMMARY | 2024-06-17 17:07 | XMS_ITS ---
Author Organization [facility] Address [address], [place] [id number] Care Team Providers Care Deburr Technician Name Role Phone [facility] Primary Care Provider Unavailable Kait Bear Unavailable Encounters Encounter Location Date Provider Diagnosis [facility] [address] [place] [phone] 02/13/2024 Kait Bear Plan Of Treatment No Information Progress Notes * Vladimir GONZALEZ EDOB:1965 (58 yo M)Acc No.[id number]:02/13/2024 Case Management Patient:?Vladimir Gonzalez Provider:?Kait Bear :1965???Age:58 Y???Sex:Male Evans e:02/13/2024 Address:[address] [place], [place] [phone] Pcp:[facility] Subjective: * Chief Complaints: * ??? * HPI: ???Social Service:?Referral Source?returning client.? Client came in still in program and seeking low income housing called to check on status at [facility] was informed they were not on the list.Client will redo the application. * Medical History:? Objective: Assessment: Plan: * Treatment: * Images: Billing Information: * Visit Code:? * Procedure Codes:? Care Plan Details* * Sign off status: Completed true * Provider:?Kait Bear Date:? Generated for Jessica lee/Jasiel/Giannaitting on:?06/17/2024 05:07 PM EST History and Physical Notes * HPI (History of Present Illness) Category Sub-Category Detail Notes Social Service Referral Source returning client
--- OUTSIDE RECORDS SUMMARY | 2024-06-17 17:07 | XMS_ITS | Clinical Summary ---
Author Organization [address] [place] [address] Address [address] [place] [address] Phone Care Team Providers Care Repeater Operator Name Role Phone Higinio Jones MD Primary Care Provider Social History Tobacco Use Types Packs/Day Years Used Date Smoking Tobacco: Never Assessed Sex and Gender Information Value Date Recorded Sex Assigned at Not on file Gender Identity Not on file Sexual Orientation Not on file Plan of Treatment Upcoming Encounters Date Type Department Care Team ([facility] Contact Info) Description 07/30/2024 8:45 AM EDT Consult Orthopedic Surgery - [address] [phone] Nathan Schmitt DPM [address] [address] Health Maintenance Due Date Last Done Comments Diabetes: Annual GFR (Glomer ular Filtration Rate) 1965 Pneumococcal Vaccine: Pediat rics (0 to 5 Years) and At-Risk Patients (6 to 64 Years) (1 of 2 - PCV) 08/28/1969 Diabetes: Annual Foot Exam 08/28/1973 Diabetes: Annual Retina Eye Exam 08/28/1973 DTaP,Tdap,and Td Vaccines (1 - Tdap) 08/28/1982 Zoster Vaccines (1 of 2) 08/28/2013 Cholesterol Screening (Lipid Panel) 04/24/2022 Colorectal Cancer Screening: Colonoscopy 04/24/2022 Depression Screening 04/24/2022 HIV Screening 04/24/2022 Hepatitis C Screening 04/24/2022 Social Influencers of Health Screening 04/24/2022 COVID-19 Vaccine ( - 2023-2 5 season) 2024 Influenza Vaccine (#1) 2024 Diabetes: Annual Urine Albumin-Creatinine Ratio (uACR) 05/23/2024 Diabetes: Blood Sugar Contro l Test (HGBA1C) 05/23/2024 RSV Immunization Patients 60 + Years Old (1 - 1-dose 75+ series) 08/28/2038 HIB Vaccines Aged Out No longer eligi ble based on patient's age to complete this topic HPV Vaccines Aged Out No longer eligi ble based on patient's age to complete this topic Hepatitis A Vaccines Aged Out No long er eligible based on patient's age to complete this topic Hepatitis B Vaccines Aged Out No long er eligible based on patient's age to complete this topic IPV Vaccines Aged Out No longer eligi ble based on patient's age to complete this topic MMR Vaccines Aged Out No longer eligi ble based on patient's age to complete this topic Meningococcal ACWY Vaccine Aged Out N o longer eligible based on patient's age to complete this topic RSV Immunization Patients Un chuck 20 months Aged Out No longer eligible b ased on patient's age to complete this topic Varicella Vaccines Aged Out No longer eligible based on patient's age to complete this topic Care Teams Repeater Operator Relationship Specialty Start Date End Date Higinio Jones MD [address] [place] [address] Dr [address] [place], [place] PCP - General Internal Medicine 05/23/24
--- OUTSIDE RECORDS SUMMARY | 2024-06-17 17:07 | XMS_ITS ---
Author Organization [facility] Address [address] [place], [place] [id number] Care Team Providers Care Cad Specialist Name Role Phone [facility] [place], Adult Medicine Clinic Primary Care Provider Unavailable Kait Bear Unavailable Medications Medication SIG (Take, Route, Frequency, Duration) [...] [facility] [address] [place] [phone] 03/11/2024 Kait Bear Plan Of Treatment No Information Progress Notes * Vladimir GONZALEZ EDOB:1965 (58 yo M)Acc No.[id number]:03/11/2024 Case Management Patient:?Vladimir GONZALEZ Provider:?Kait Bear :1965???Age:58 Y???Sex:Male Evans e:03/11/2024 Address:[address] [place], [place] [address]KATH[place], [place]FA-[id number] Pcp:[facility] Subjective: * Chief Complaints: * ??? * HPI: ???Social Service:?Referral Source?returning client.?Interpretation for medical provider?housing.? client came in seeking assistance with filling out section 8 application.client stated they were interested in the [employer] and would. * Medical History:? * Medications:?Taking [...] * Electronic signature of Jonny Bear on 06/17/2024 at 05:07 PM EST Sign off status: Pending * Provider:Wilfrido Bear Date:? Generated for Jessica lee/Jasiel/Sonido on:?06/17/2024 05:07 PM EST History and Physical Notes * HPI (History of Present Illness) Category Sub-Category Detail Notes Social Service Referral Source returning client Interpretation for medical provider chio ing
--- OUTSIDE RECORDS SUMMARY | 2024-06-17 17:07 | XMS_ITS | Patient Health Record ---
Author Organization [facility] Address [address] [place], [place] [phone] Care Team Providers Care Production Coordinator Name Role Phone [facility], Adult Medicine Clinic Primary Care Provider Unavailable Kait Bear Unavailable [phone] Yobany Vazquez Unavailable [phone] Reason For Referral No Information Medications Medication [...] (20 or more) Unknown 03/19/2010 Administered hx [place] [facility] Hepatitis B (20 or more) Unknown 07/19/2010 Administered hx [facility] Influenza Unknown 03/07/2011 Administered hx [place] HO C Hepatitis A IM Intramuscular 11/28/2016 [...] Problem Type II diabetes mellitus without complication (606604608) Type 2 diabetes mellitus without complications (E11.9) Active confirmed Problem Mental disorder (35191901) 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 Problem Alcohol abuse (45466011) Alcohol abuse, uncomplicated (F10.10) Active confirmed Problem Cocaine abuse (50958782) Cocaine abuse, uncomplicated (F14.10) Active confirmed Problem Tobacco user (760684680) Nicotine dependence, unspecified, uncomplicated (F17.200) Active confirmed Problem Insomnia (138289522) Insomnia, unspecified (G47.00) Active confirmed Problem Essential hypertensi on (32709916) Essential (primary) hypertension (I10) Active confirmed Problem Normal body mass ind ex (51528459) Body mass index (BMI) 22.0-22.9, adult (Z68.22) Active confirmed Problem Pure hypercholesterolemia (972866284) Pure hypercholestero lemia, unspecified (E78.00) Active confirmed Encounters Encounter Location Date Provider Diagnosis [facility] [phone] 11/07/2023 Kait Bear [facility] [phone] 06/23/2023 Kait Bear [facility] [phone] 07/14/2023 Kait Bear [facility] [phone] 07/11/2023 Yobany Vazquez [facility] [phone] 07/21/2023 Kait Whalen-Usman [facility] [address] [place], [place] [phone] 09/08/2023 Kait Whalen-Usman [facility] [address] [place], [place] [phone] 09/21/2023 Kait Whalen-Usman [facility] [address] [place], [place] [phone] 09/28/2023 Kait Whalen-Usman [facility] [address] [place], [place] [phone] 10/13/2023 Kait Whalen-Usman [facility] [address] [place], [place] [phone] 10/27/2023 Kait Whalen-Usman [facility] [address] [place], [place] [phone] 10/31/2023 Kait Whalen-Usman [facility] [address] [place], [place] [phone] 11/14/2023 Kait Whalen-Usman [facility] [address] [place], [place] [phone] 12/18/2023 Kait Whalen-Usman [facility] [address] [place] [phone] 01/12/2024 Kait Whalen-Usman [facility] [address] [place], [place] [phone] 01/16/2024 Kait Whalen-Usman [facility] [address] [place], [place] [phone] 01/26/2024 Kait Whalen-Usman [facility] [address] [place], [place] [phone] 02/02/2024 Kait Whalen-Usman [facility] [address] [place], [place] [phone] 02/09/2024 Kait Whalen-Usman [facility] [address] [place], [place] [phone] 02/13/2024 Kait Whalen-Usman [facility] [address] [place], [place] [phone] 03/11/2024 Kait Bear Plan Of Treatment Pending Test Test Name Order Date Blood Sugar/finger stick 08/25/2016 PPD (Tuberculosis skin test) 05/13/2016 Insurance Providers Payer Name Payer Address Payer Phone Subscriber Number Group Number Insured Name Patient Relationship to Insured Coverage Start Date Coverage End Date [place] Medicaid Standard [address] [place] [phone] [id number] Vladimir Vizcarra Self - patient is the insured Medical (General) History Medical History History ICD Code tobacco use depression w/anxiety elevated cholesterol Hx crack use hx bipolar hx htn-03/2016 on HCTZ 25mg hx ETOH 4..2016 ASCVD 10 year risk 35.8% Surgical History Surgery Date(Month/Year) inguinal hernia repair, bilat as child hernia repair 1977 Hospitalization History Reason Date(Month/Year) [facility] 03/2015 [facility] 02/2015 [facility], hernia repair
--- OUTSIDE RECORDS SUMMARY | 2024-06-17 17:07 | XMS_ITS ---
Author Organization [facility] Address [address] [place], [place] [phone] Care Team Providers Care Senior Ssis Developer Name Role Phone [facility], [facility] Primary Care Provider Unavailable Kait Bear Unavailable Encounters Encounter Location Date Provider Diagnosis [facility] [address] [place] [phone] 05/03/2024 Kait Bear Plan Of Treatment No Information Progress Notes * Vladimir GONZALEZ EDOB:1965 (58 yo M)Acc No.[id number]:05/03/2024 Case Management Patient:?Vladimir GONZALEZ Provider:?Kait Bear :1965???Age:58 Y???Sex:Male Evans e:05/03/2024 Address:[address] [place], [place] [phone] Pcp:[facility] Subjective: * Chief Complaints: * ??? * Medical History:? Objective: Assessment: Plan: * Treatment: * Images: Billing Information: * Visit Code:? * Procedure Codes:? Care Plan Details* * Electronic signature of Jonny Bear on 06/17/2024 at 05:07 PM EST Sign off status: Pending * Provider:Wilfrido Bear Date:? Generated for Jessica lee/Jasiel/eTransmitting on:?06/17/2024 05:07 PM EST
[2024-06-19 18:19] LABS: Free Prostate Spec Ag 0.6 ng/mL; Percent Free Prostate Spec Ag 13 % (calc) (>25); Prostate Specific Ag Total 4.8 ng/mL (< OR = 4.0)
== END 2024-06-17 12:24 | disposition home or self-care (01) ==
LOC: HO.LAB 12:23
DX: Z00.00 Encounter for general adult medical examination without abnormal findings (principal); N18.30 Chronic kidney disease, stage 3 unspecified; R80.9 Proteinuria, unspecified; E11.29 Type 2 diabetes mellitus with other diabetic kidney complication; F17.200 Nicotine dependence, unspecified, uncomplicated; F19.90 Other psychoactive substance use, unspecified, uncomplicated; I10 Essential (primary) hypertension; E78.5 Hyperlipidemia, unspecified; R06.83 Snoring; G47.00 Insomnia, unspecified
CPT/HCPCS: 36415; 80053; 80061; 81001; 82043; 82306; 82570; 83036; 84153; 84154; 84443; 85025

== ENCOUNTER 2024-07-05 10:55 | Outpatient (REF) | payer OTHER, SELFPAY ==
[2024-07-05 11:28] LABS: Appearance Urine Clear; Color Urine Yellow; Glucose Urine UA Negative (Negative); Leukocyte Esterase Urine Negative (Negative); Nitrite Urine Negative (Negative); PH 6.5 (5.0-9.0); UMIC TRIGGER UACC YES; Urine Blood Negative (Negative); Urine Ketones Negative (Negative); Urine Protein 100 (2+) mg/dL (Neg-Trace)
[2024-07-05 11:34] LABS: Bacteria Urine None Seen (None Seen); Hyaline Casts Urine 0-2 /LPF (0-2); RBC Urine 0-2 /HPF (0-2); Squamous Epithelial Cell Urine 0-2 /HPF (0-2); WBC Urine 0-5 /HPF (0-5)
[2024-07-05 11:46] LABS: Glucose Fasting 116 mg/dL (60-99)
--- OUTSIDE RECORDS SUMMARY | 2024-07-05 11:54 | XMS_ITS ---
Author Organization [facility] Address [address] [place], [place] [phone] Care Team Providers Care Apricot Washer Name Role Phone [facility], Adult Medicine Clinic Primary Care Provider Unavailable [...] [facility] [address] [place] [phone] 03/11/2024 Kait Bear Plan Of Treatment No Information Progress Notes * Vladimir GONZALEZ EDOB:1965 (58 yo M)Acc No.[id number]:03/11/2024 Case Management Patient:?Vladimir GONZALEZ Provider:?Kait Bear :1965???Age:58 Y???Sex:Male Evans e:03/11/2024 Address:[address] [place], [place] [address], MAEC-[id number] Pcp:[facility] Subjective: * Chief Complaints: * ??? * HPI: ???Social Service:?Referral Source?returning client.?Interpretation for medical provider?housing.? client came in seeking assistance with filling out section 8 application.client stated they were interested in the [employer] and would. * Medical History:? * Medications:?Taking [...] * Electronic signature of Jonny Bear on 07/05/2024 at 11:54 AM EST Sign off status: Pending * Provider:Wilfrido Bear Date:? Generated for Jessica lee/Jasiel/Sonido on:?07/05/2024 11:54 AM EST History and Physical Notes * HPI (History of Present Illness) Category Sub-Category Detail Notes Social Service Referral Source returning client Interpretation for medical provider chio ing
--- OUTSIDE RECORDS SUMMARY | 2024-07-05 11:54 | XMS_ITS ---
Author Organization [facility] Address [address] [place], [place] [phone] Care Team Providers Care Oil Processing Technician Name Role Phone [facility], Adult Medicine Clinic Primary Care Provider Unavailable Kait Bear Unavailable Encounters Encounter Location Date Provider Diagnosis [facility] [address] [place] [phone] 05/03/2024 Kait Bear Plan Of Treatment No Information Progress Notes * Vladimir GONZALEZ EDOB:1965 (58 yo M)Acc No.[id number]:05/03/2024 Case Management Patient:?Vladimir GONZALEZ Provider:?Kait Bear :1965???Age:58 Y???Sex:Male Evans e:05/03/2024 Address:[address] [place], [place] [phone] Pcp:[facility] Subjective: * Chief Complaints: * ??? * Medical History:? Objective: Assessment: Plan: * Treatment: * Images: Billing Information: * Visit Code:? * Procedure Codes:? Care Plan Details* * Electronic signature of Jonny Bear on 07/05/2024 at 11:54 AM EST Sign off status: Pending * Provider:Wilfrido Bear Date:? Generated for Jessica lee/Jasiel/eTransmitting on:?07/05/2024 11:54 AM EST
--- OUTSIDE RECORDS SUMMARY | 2024-07-05 11:55 | XMS_ITS ---
Author Organization [facility] Address [address] [place], [place] [phone] Care Team Providers Care Nanotechnician Name Role Phone [facility], Adult Medicine Clinic Primary Care Provider Unavailable Kait Bear Unavailable [phone] Encounters Encounter Location Date Provider Diagnosis [facility] [address] [place] [phone] 02/13/2024 Kait Bear Plan Of Treatment No Information Progress Notes * Vladimir GONZALEZ EDOB:1965 (58 yo M)Acc No.[id number]:02/13/2024 Case Management Patient:?Vladimir Gonzalez Provider:?Kait Bear :1965???Age:58 Y???Sex:Male Evans e:02/13/2024 Address:[address] [place], [place] [phone] Pcp:[facility] Subjective: * Chief Complaints: * ??? * HPI: ???Social Service:?Referral Source?returning client.? Client came in still in program and seeking low income housing called to check on status at [facility] was informed they were not on the list.Client will redo the application. * Medical History:? Objective: Assessment: Plan: * Treatment: * Images: Billing Information: * Visit Code:? * Procedure Codes:? Care Plan Details* * Sign off status: Completed true * Provider:?Kait Bear Date:? Generated for Jessica lee/Jasiel/Giannaitting on:?07/05/2024 11:54 AM EST History and Physical Notes * HPI (History of Present Illness) Category Sub-Category Detail Notes Social Service Referral Source returning client
--- OUTSIDE RECORDS SUMMARY | 2024-07-05 11:55 | XMS_ITS | Clinical Summary ---
Author Organization [address] [place] [address] Address [address] [place] [address] Phone Care Team Providers Care Mobile Marketing Specialist Name Role Phone Higinio Jones MD Primary Care Provider Social History Tobacco Use Types Packs/Day Years Used Date Smoking Tobacco: Never Assessed Sex and Gender Information Value Date Recorded Sex Assigned at Not on file Legal Sex Male 3:27 AM EST Gender Identity Not on file Sexual Orientation Not on file Plan of Treatment Upcoming Encounters Date Type Department Care Team ([facility] st Contact Info) Description 07/30/2024 8:45 AM EDT Consult Orthopedic Surgery - [address] [phone] Nathan Schmitt DPM [address] [address] Health Maintenance Due Date Last Done Comments [...] Influencers of Health Screening 04/24/2022 COVID-19 Vaccine (1 - 2023-2 5 season) 2024 Influenza Vaccine [...] on patient's age to complete this topic [place] [address] Care Teams Mobile Marketing Specialist Relationship Specialty Start Date End Date Higinio Jones MD [address] [place] [address] Dr [address] [place], [place] PCP - General Internal Medicine 05/23/24
[2024-07-05 12:18] LABS: PSA,Total (Free>4and<10) 4.12 ng/mL (0.00-4.00)
[2024-07-08 12:14] LABS: Free Prostate Spec Ag 0.6 ng/mL; Percent Free Prostate Spec Ag 18 % (calc) (>25); Prostate Specific Ag Total 3.4 ng/mL (< OR = 4.0)
== END 2024-07-05 10:56 | disposition home or self-care (01) ==
LOC: HO.LAB 10:55
PROVIDERS: PCP Internal Medicine; Visit Provider Internal Medicine
DX: Z00.00 Encounter for general adult medical examination without abnormal findings (principal); R97.20 Elevated prostate specific antigen [PSA]; N18.30 Chronic kidney disease, stage 3 unspecified; R80.9 Proteinuria, unspecified; E11.29 Type 2 diabetes mellitus with other diabetic kidney complication; F17.200 Nicotine dependence, unspecified, uncomplicated; F19.90 Other psychoactive substance use, unspecified, uncomplicated; I10 Essential (primary) hypertension; E78.5 Hyperlipidemia, unspecified; R06.83 Snoring; G47.00 Insomnia, unspecified
CPT/HCPCS: 36415; 81001; 82947; 84153; 84154

== ENCOUNTER 2024-08-21 12:24 | Outpatient (AMB) | payer OTHER, SELFPAY ==
[2024-08-21 13:10] VITALS: BP 126/88; PULSE 81; O2SAT 99; BMI 29.5
--- NOTE | 2024-08-21 13:10 | A.OFFPC_ITS ---
Vital Signs 08/21/24 13:10 Height 5 ft 5 in Weight 177 lb 8 oz BMI 29.5 BP 126/88 Blood Pressure Location Lt brachial Position Sitting Pulse 81 Pulse Source Pulse Oximeter Pulse Oximetry (%) 99 Oxygen Delivery Method Room Air Intake Visit Reasons: DM/HTN/Bipolar Code Enforcement Inspector Required: No Accompanied by: Self / Same As Patient Allergies No Known Allergies [No Known Allergies*] Allergy (Verified 08/21/24 15:09) Medication List - Last Reconciled 08/21/24 by Higinio Jones MD amlodipine 5 mg PO DAILY atorvastatin 40 mg PO BEDTIME 90 days cholecalciferol (vitamin D3) 25 mcg PO DAILY clotrimazole 1% 1 appl topical BID lithium carbonate 600 mg PO BEDTIME melatonin 5 mg PO BEDTIME metformin 1,000 mg PO BID olanzapine 10 mg PO BEDTIME zolpidem 10 mg PO BEDTIME PRN Tobacco use date assessed: 08/21/24 Dental Screening Dental Screen Date: 08/21/24 Did you have a dental visit in the last 12 months?: Yes Did you have a dental problem in the last 6 months where you did not have access to dental care?: No Was dental information given to patient?: Patient has dentist HPI DM/HTN/Bipolar HPI Details Patient comes in today for his follow up visit for his HTH, DM and hyperlipidemia States that he feels okay He denies any headaches or dizziness Denies any chest pains, no SOB No nausea/vomiting, no abdominal pain No change in bowel habits noted He had some follow up labs done over the past couple of months - to discuss his results [facility] Medical History (Updated 08/21/24 @ 16:33 by Higinio Jones MD) Vitamin D deficiency Snoring Hypersomnia Insomnia Chronic kidney disease, stage III (moderate) Albuminuria Diabetes mellitus with albuminuria Insomnia Overweight (BMI 25.0-29.9) Smoker Bipolar depression Substance use disorder Essential hypertension Diabetes mellitus Mixed hyperlipidemia Surgical History No pertinent past surgical history Family History Father No problems noted. Mother No problems noted. Brother No problems noted. Sister No problems noted. Brother No problems noted. Brother No problems noted. Brother No problems noted. Sister No problems noted. Other Mental health disorder Substance use disorder Social History Housing: Other Alcohol intake: never Patient Tobacco Use Status: Current everyday Tobacco user Cigarette Packs Per Day: 0.5 e-Cigarette/Vaping Use: Never Used Second Hand Smoke Exposure: Yes Substance Use Type: Crack/Cocaine service: No Current occupational status: disabled Current occupational exposures/hazards: No Cognitive needs: Yes Hearing needs: No Vision needs: No Questionnaire PHQ-9 Over the last 2 weeks, how often have you been bothered by any of the following problems? 1. Little interest or pleasure in doing things: several days 2. Feeling down, depressed, or hopeless: several days 3. Trouble falling or staying asleep, or sleeping too much: nearly every day 4. Feeling tired or having little energy: several days 5. Poor appetite or overeating: not at all 6. Feeling bad about yourself - or that you are a failure or have let yourself or your family down: not at all 7. Trouble concentrating on things, such as reading the newspaper or watching television: not at all 8. Moving or speaking so slowly that other people could have noticed. Or the opposite - being so fidgety or restless that you have been moving around a lot more than usual: not at all 9. Thoughts that you would be better off or of hurting yourself in some way: not at all Total score: 6 Depression Screening Interpretation: Positive Depression Screening Follow-up: Existing condition and In treatment Depression Screening Done: Yes 86360 - PHQ-9 Billing: Yes Source: Developed by Drs. Mehdi Randolph, Sabrina Gonzalez, Tutu Eckert and colleagues, with an educational camryn from [employer]. Thrive Questionnaire Date Thrive assessed: 08/21/24 I am a: Patient What is your living situation today?: I have a steady place to live Within the past 12 months, did the food you bought not last and you didn't have the money to get more?: Never true Within the past 12 months, did you worry whether your food would run out before you got money to buy more?: Never true Do you have trouble paying for medicines?: No Do you have trouble getting transportation to medical appointments?: No Do you have trouble paying your heating and electricity bill?: No Do you have trouble taking care of your child, family member or friend?: No Do you have trouble with day-to-day activities such as bathing, preparing meals, shopping, managing finances, etc.?: No Are you currently unemployed and looking for a job?: No Are you interested in more education?: No Please select the resources that you would like help with: None Currently or been in a relationship where the following occur: No concerns reported THRIVE Score: 0 AUDIT C Alcohol Use Questionnaire (AUDIT-C) 1. How often do you have a drink containing alcohol?: Never (has not had alcohol in months) 3. How often do you have six or more drinks on one occasion?: Never Total Score: 0 Score Reviewed/Action Taken: Yes NORMA-7 AMB Questionnaire NORMA-7 Date NORMA - 7 assessed: 08/21/24 Feeling nervous, anxious, or on edge: 0 = Not at all Not being able to stop or control worryin = Not at all Worrying too much about different things: 0 = Not at all Trouble relaxin = Not at all Being so restless that it is hard to sit still: 0 = Not at all Becoming easily annoyed or irritable: 0 = Not at all Feeling afraid as if something awful might happen: 0 = Not at all Total NORMA-7 score (0-4 normal; 5-9 mild; 10-14 moderate; 15-21 severe): 0 Source: Developed by Drs. Mehdi Randolph, Sabrina Gonzalez, Tutu Eckert and colleagues, with an educational camryn from [employer]. NORMA-7 Assessment Billing NORMA-7 Assessment Tool: NORMA-7 Assessment 19859 Review of Systems Const Denies chills, Denies fatigue, Denies fever(s) and Denies headache(s) ENT Denies dysphagia, Denies dizziness, Denies otalgia, Denies headache(s), Denies neck pain, Denies odynophagia and Denies sore throat Card Denies chest pain, Denies irregular heart rhythm, Denies palpitations and Denies dyspnea Resp Denies chest congestion, Denies cough and Denies dyspnea GI Denies abdominal pain, Denies constipation, Denies dysphagia, Denies heartburn, Denies diarrhea, Denies nausea, Denies odynophagia and Denies vomiting Denies difficulty urinating, Denies dysuria and Denies urinary frequency Musc Denies back pain, Denies arthralgias and Denies neck pain Skin/Breast Denies rash Neuro Denies dizziness, Denies headache(s) and Denies paresthesias Endo Denies fatigue and Denies palpitations Physical exam (Primary Care) Vital Signs: Last Vital Signs Pulse 81 08/21/24 13:10 BP 126/88 08/21/24 13:10 Pulse Ox 99 08/21/24 13:10 Oxygen Delivery Method Room Air 08/21/24 13:10 BMI result Body Mass Index 29.5 Tobacco/Smoking Status: Tobacco use Status Tobacco use date assessed 08/21/24 08/21/24 13:13 Patient Tobacco Use Status Current everyday Tobacco 08/21/24 13:13 e-Cigarette/Vaping Use Never Used 08/21/24 13:13 PHQ-9: PHQ-9 Score PHQ-9: Total score 6 08/21/24 13:13 Depression Screening Interpretation: Positive Depression Screening Follow-up: Existing condition and In treatment Thrive Assessment: Date of Thrive Assessment Date Thrive assessed 08/21/24 08/21/24 13:13 Currently or been in a relationship where the following occur: No concerns reported Const General: no acute distress and alert HENMT Ears: TM's normal bilaterally and EAC's normal (although (+) cerumen noted in both ear canals) Throat: Yes posterior oropharynx normal and Yes tonsils normal (no TP congestion) Neck Neck: Yes supple and No lymphadenopathy Thyroid: Thyroid normal Resp Auscultation: clear to auscultation bilaterally, no rales and no wheezes Cardio Rate: regular rate Rhythm: regular rhythm Heart sounds: no murmurs GI Palpation (GI): Soft to palpation and nontender Auscultation: normal bowel sounds General: Yes no CVA tenderness Back/Spine/Pelvis Back: no CVA tenderness Thoracic/Lumbar Spine: No lumbar spinal tenderness Skin Rashes: no rashes Extrem General: Yes no clubbing, cyanosis or edema Results Reviewed Results Reviewed: Laboratory Tests 05/20/24 06/17/24 06/17/24 15:52 12:44 12:52 WBC 9.4 Hgb 13.9 L Hct 44.2 Plt Count 283 Sodium 139 Potassium 3.8 Creatinine 0.87 Estimated GFR > 60 Fasting Glucose Hgb A1c (Clinic) 6.5 H Hemoglobin A1c % 6.6 H Calcium 9.6 AST 17 ALT 20 Triglycerides 312 H Cholesterol 161 LDL Cholesterol, Calc 75 HDL Cholesterol 24 L Free PSA % Free PSA Total PSA Total PSA (off-site) 25-OH Vitamin D Total 7.8 L TSH 0.89 Ur Specific Page Urine Protein Urine Glucose (UA) Urine Blood Urine Nitrite Ur Leukocyte Esterase Microalb/Creat Ratio 908.1 H 07/05/24 07/05/24 07/05/24 11:04 11:08 12:18 WBC Hgb Hct Plt Count Sodium Potassium Creatinine Estimated GFR Fasting Glucose 116 H Hgb A1c (Clinic) Hemoglobin A1c % Calcium AST ALT Triglycerides Cholesterol LDL Cholesterol, Calc HDL Cholesterol Free PSA 0.6 % Free PSA 18 L Total PSA 4.12 H Total PSA (off-site) 3.4 25-OH Vitamin D Total TSH Ur Specific Page 1.010 Urine Protein 100 (2+) H Urine Glucose (UA) Negative Urine Blood Negative Urine Nitrite Negative Ur Leukocyte Esterase Negative Microalb/Creat Ratio Coding Level of Care Code Est Pt Level 4 (31975) Complex EM visit Add On G2211 Diagnoses Mixed hyperlipidemia E78.2 Type 2 diabetes mellitus without complication, without long-term current use of insulin E11.9 Diabetes mellitus type: type 2 Diabetes mellitus intermediate teacher insulin use: without detention use Diabetes mellitus complication status: without complication Essential hypertension I10 Vitamin D deficiency E55.9 Elevated PSA measurement R97.20 Substance use disorder F19.90 Insomnia, unspecified type G47.00 Insomnia type: unspecified Bipolar depression F31.9 Smoker F17.200 Overweight (BMI 25.0-29.9) E66.3 Additional Codes NORMA-7 Assessment Billing - NORMA-7 Assessment Tool: NORMA-7 Assessment 52595 ([id number]) PHQ-9 - 53749 - PHQ-9 Billing: Yes ([id number]) Assessment & Plan Assessment & Plan (1) Mixed hyperlipidemia: Code(s): E78.2 - Mixed hyperlipidemia Category: Medical Plan: Results of his labs done over the past couple of months reviewed and discussed with patient Reinforced low cholesterol diet Continue Atorvastatin 40 mg QD Will recheck his labs and fasting lipids in 4 months for follow up (2) Diabetes mellitus: Code(s): E11.9 - Type 2 diabetes mellitus without complications Category: Medical Qualifiers: Diabetes mellitus type: type 2 Diabetes mellitus detention insulin use: without detention use Diabetes mellitus complication status: without complication Qualified Code(s): E11.9 - Type 2 diabetes mellitus without complications Plan: His HgbA1c was at 6.6% on his labs done a couple of months ago (in-office HgbA1c was at 6.5% back in April 2024) - goal is at least <7.0% Reinforced diabetic diet Continue Metformin 1000 mg BID (3) Essential hypertension: Code(s): I10 - Essential (primary) hypertension Category: Medical Plan: Reinforced low sodium diet - goal is systolic BP of 120 mm or less Continue Amlodipine 5 mg QD (4) Vitamin D deficiency: Code(s): E55.9 - Vitamin D deficiency, unspecified Category: Medical Plan: Patient is advised that his Vitamin D level was still very low on his labs done a couple of months ago Will start him back on Vitamin D3 2000 units QD (5) Elevated PSA measurement: Code(s): R97.20 - Elevated prostate specific antigen [PSA] Category: Medical Plan: His PSA level was also elevated at 4.12 when checked a couple of months ago Have advised patient top consider a referral to urology for further evaluation Patient states that he currently has no acute urinary symptoms and would like to hold off on this for now (6) Substance use disorder: Code(s): F19.90 - Other psychoactive substance use, unspecified, uncomplicated Category: Medical Plan: (+) Hx of alcohol, marijuana and crack cocaine use - states that he has been clean and sober for over a year now He denies any history of addiction or dependence and has not needed to go to detox for any of the substances that he has used in the past - states that they were more of a recreational use He was previously living in a residential program through [facility] in [place] but now has his own place (7) Insomnia: Code(s): G47.00 - Insomnia, unspecified Category: Medical Qualifiers: Insomnia type: unspecified Qualified Code(s): G47.00 - Insomnia, unspecified Plan: Sleep hygiene reinforced Continue Melatonin 5 mg Q HS and Zolpidem 10 mg Q HS He is also on Olanzapine at bedtime, which help as well [facility] has recommended referral for a sleep study in the past - he was previously referred to and seen by Sleep Medicine and was originally scheduled to have a home sleep study done in April 2024 but this reportedly did not go through as planned He is scheduled to be seen again by Sleep Medicine later this month for follow up and work up (8) Bipolar depression: Code(s): F31.9 - Bipolar disorder, unspecified Category: Medical Plan: Continue Olanzapine 10 mg Q HS and [place] 600 mg Q HS Follow up with psychiatry at [facility] as scheduled (9) Smoker: Code(s): F17.200 - Nicotine dependence, unspecified, uncomplicated Category: Social Hx Plan: Patient is counseled again on complete smoking cessation (10) Overweight (BMI 25.0-29.9): Code(s): E66.3 - Overweight Category: Medical Plan: Reinforced diet/exercise as tolerated/lose weight Plan Follow up in 4 months Orders: Orders Hemoglobin A1c 4 Months E11.9 - Type 2 diabetes mellitus without complications Complete Blood Count Auto Diff 4 Months D64.9 - Anemia, unspecified Lipid Panel 4 Months E78.00 - Pure hypercholesterolemia, unspecified TSH reflex Free T4 4 Months E78.00 - Pure hypercholesterolemia, unspecified [place] 4 Months F31.9 - Bipolar disorder, unspecified Comprehensive [place]. Panel Fast 4 Months E78.00 - Pure hypercholesterolemia, unspecified Microalbumin, Random (w Creat) 4 Months E11.9 - Type 2 diabetes mellitus without complications UA CC w/rflx Micro + Cult 4 Months R30.0 - Dysuria Vitamin D 25-OH Total 4 Months E55.9 - Vitamin D deficiency, unspecified
--- OUTSIDE RECORDS SUMMARY | 2024-08-21 14:56 | XMS_ITS ---
Author Organization [facility] Address [address], [place] [id number] Care Team Providers Care Senior Stack Engineer Name Role Phone [facility] [place] [facility] Primary Care Provider Unavailable Kait Bear Encounters Encounter Location Date Provider Diagnosis [facility] [address] [place] [phone] 05/03/2024 Kait Bear Plan Of Treatment No Information Progress Notes * Vladimir GONZALEZ EDOB:1965 (58 yo M)Acc No.[id number]:05/03/2024 Case Management Patient:?Vladimir GONZALEZ Provider:?Kait Bear :1965???Age:58 Y???Sex:Male Evans e:05/03/2024 Address:[address] [place], [place] [phone] Pcp:[facility] Subjective: * Chief Complaints: * ??? * Medical History:? Objective: Assessment: Plan: * Treatment: * Images: Billing Information: * Visit Code:? * Procedure Codes:? Care Plan Details* * Electronic signature of Jonny Bear on 08/21/2024 at 02:56 PM EDT Sign off status: Pending * Provider:Wilfrido Bear Date:? Generated for Jessica lee/Jasiel/eTransmitting on:?08/21/2024 02:56 PM EDT
--- OUTSIDE RECORDS SUMMARY | 2024-08-21 14:56 | XMS_ITS ---
Author Organization [facility] Address [address], [place] [id number] Care Team Providers Care Soft Sugar Supervisor Name Role Phone [facility], Adult Medicine Clinic Primary Care Provider Unavailable Kait Bear [phone] Encounters Encounter Location Date Provider Diagnosis [facility] [address] [place] [phone] 08/16/2024 Kait Bear Plan Of Treatment No Information Progress Notes * Vladimir GONZALEZ EDOB:1965 (58 yo M)Acc No.[id number]:08/16/2024 Case Management Patient:?Vladimir GONZALEZ Provider:?Kait Bear :1965???Age:58 Y???Sex:Male Evans e:08/16/2024 Address:[address] [place], [place] [phone] Pcp:[facility] Subjective: * Chief Complaints: * ??? * Medical History:? Objective: Assessment: Plan: * Treatment: * Images: Billing Information: * Visit Code:? * Procedure Codes:? Care Plan Details* * Electronic signature of Jonny Bear on 08/21/2024 at 02:56 PM EDT Sign off status: Pending * Provider:Wilfrido Bear Date:? Generated for Jessica lee/Jasiel/eTransmitting on:?08/21/2024 02:56 PM EDT
--- OUTSIDE RECORDS SUMMARY | 2024-08-21 14:56 | XMS_ITS | Patient Health Record ---
Author Organization [facility] Address [address], [place] [phone] Care Team Providers Care Double End Tenon Operator Name Role Phone [facility] [place] [facility] Primary Care Provider Unavailable Kait Bear Unavailable [phone] Reason For Referral No Information Medications Medication SIG (Take, Route, Frequency, Duration) Notes Start Date End Date Status Depakote ER 500 mg 1 tab(s) orally bid 08/06 NO refill Active metFORMIN 500 mg 1 tab(s) orally 2 times a day for 30 days 11/14 3 refill Active hydrOXYzine hydrochloride 25 mg 1 tab(s) orally 3 times a day PRN 08/06 NO refill Active Seroquel 300 mg 1 tab(s) orally @ H S 11/14 1 refill Active Melatonin 5 mg 1 - 2 tab(s) orally once (at bedtime) for 30 days 11/28/2016 Active atorvastatin 20 mg 1 tab(s) orally once a day for 30 day(s) 11/14 NO refills 09/09/2016 Active hydroCHLOROthiazide 25 mg 1 tab(s) orall y once a day for 30 days 11/09 NO refills Active lisinopril 5 mg 1 tab(s) orally once a day for 30 day(s) 12/15/2016 Active Immunizations Vaccine Route Administration Date Status Comme nts Twinrix Hep A/Hep B Unknown 02/16/2010 Administered hx from [facility] Hepatitis B (20 or more) Unknown 03/19/2010 Administered hx [facility] Hepatitis B (20 or more) Unknown 07/19/2010 Administered hx [facility] Influenza Unknown 03/07/2011 Administered hx [facility] Hepatitis A IM Intramuscular 11/28/2016 [...] griselda t Patient counseled on the [place] of tobacco use and advised to quit: 12/15/2016 Problems Problem Type SNOMED Code ICD Code Onset Dates Problem Status W/U Status Risk Notes Problem Type II diabetes mellitus without complication (901740351) Type 2 diabetes mellitus without complications (E11.9) Active confirmed Problem Mental disorder (71037908) 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 Problem Alcohol abuse (14778237) Alcohol abuse, uncomplicated (F10.10) Active confirmed Problem Cocaine abuse (78345096) Cocaine abuse, uncomplicated (F14.10) Active confirmed Problem Tobacco user (255228509) Nicotine dependence, unspecified, uncomplicated (F17.200) Active confirmed Problem Insomnia (787493747) Insomnia, unspecified (G47.00) Active confirmed Problem Essential hypertensi on (43865032) Essential (primary) hypertension (I10) Active confirmed Problem Normal body mass ind ex (66815440) Body mass index (BMI) 22.0-22.9, adult (Z68.22) Active confirmed Problem Pure hypercholesterolemia (773672253) Pure hypercholestero lemia, unspecified (E78.00) Active confirmed Encounters Encounter Location Date Provider Diagnosis [facility] [address] [place] [phone] 11/07/2023 Kait Bear [facility] [address] [place] [id number] 09/08/2023 Kait Bear [facility] [phone] 09/21/2023 Kait [facility] [address] [place] [id number] 09/28/2023 Kait Bear [facility] [address] [place] [address] [id number] 10/13/2023 Kait Whalen[facility]Usman [facility] [address], [place] [phone] 10/27/2023 Kait Whalen[facility]Usman [facility] [address], [place] [phone] 10/31/2023 Kait Whalen[facility]Usman [facility] [address] [place], [place] [phone] 11/14/2023 Kait Whalen[facility]Usman [facility] [address] [place], [place] [phone] 12/18/2023 Kait Whalen[facility]Usman [facility] [address] [place], [place] [phone] 01/12/2024 Kait Whalen[facility]Usman [facility] [address] [place], [place] [phone] 01/16/2024 Kait Whalen-Usman [facility] [address], [place] [phone] 01/26/2024 Kait Whalen-Usman [facility] [address] [place] [phone] 02/02/2024 Kait Whalen[facility]Usman [facility] [address], [place] [phone] 02/09/2024 Kait Whalen-Usman [facility] [address] [place] [phone] 02/13/2024 Kait Whalen-Usman [facility] [address] [place] [address] [id number] 03/11/2024 Kait Whalen-Usman [facility] [address] [place] [address] [phone] 08/05/2024 Kait Bear Plan Of Treatment Pending Test Test Name Order Date Blood Sugar/finger stick 08/25/2016 PPD (Tuberculosis skin test) 05/13/2016 Insurance Providers Payer Name Payer Address Payer Phone Subscriber Number Group Number Insured Name Patient Relationship to Insured Coverage Start Date Coverage End Date [place] [address] [place] [address] [id number] Vladimir Vizcarra Self - patient is the insured Medical (General) History Medical History History ICD Code tobacco use depression w/anxiety elevated cholesterol Hx crack use hx bipolar hx htn-03/2016 on HCTZ 25mg hx ETOH 4.21.2017 ASCVD 10 year risk 35.8% Surgical History Surgery Date(Month/Year) inguinal hernia repair, bilat as child hernia repair 1977 Hospitalization History Reason Date(Month/Year) [facility] Det[facility]/psych 03/2015 [facility] 02/2015 [facility], hernia repair
--- OUTSIDE RECORDS SUMMARY | 2024-08-21 14:57 | XMS_ITS | Clinical Summary ---
Author Organization [facility] Address [address] [place] [address] Phone Care Team Providers Care Director Of Security Name Role Phone Higinio Jones MD Primary Care Provider [phone] Allergies No known active allergies Medications amLODIPine (NORVASC) 5 mg tablet Take 1 tablet (5 mg total) by mouth 1 (one) time each day. Active atorvastatin (LIPITOR) 40 mg tablet Take 1 tablet (40 mg total) by mouth at bedtime. Active clotrimazole (LOTRIMIN) 1 % cream Apply 1 Application topically 2 (two) times a day. Active lithium 600 mg capsule Take 1 capsule (600 mg total) by mouth 3 (three) times a day with meals. Active melatonin 3 mg tablet Take 5 mg by mouth at bedtime. Active metFORMIN (FORTAMET) 1,000 mg 24 hr tablet Take 1 tablet (1,000 mg total) by mouth 1 (one) time each day with dinner. Do not crush, chew, or split. Active OLANZapine (ZyPREXA ZYDIS) 10 mg disintegrating tablet Dissolve 1 tablet (10 mg total) on top of the tongue at bedtime. Active zolpidem (AMBIEN) 10 mg tablet Take 1 tablet (10 mg total) by mouth at bedtime as needed for sleep. Active ammonium lactate (AmLactin) 12 % lotion Apply topically if needed for dry skin. 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 Over weight 07/29/2024 Smoker 07/29/2024 Bipolar 1 disorder 07/29/2024 Essential hypertension 07/29/2024 Diabetes mellitus 07/29/2024 Encounters Date Type Department Care Team Description 07/30/2024 8:45 AM EDT Consult Orthopedic Surgery [facility] [address] [phone] Nathan Schmitt DPM Controlled type 2 diabetes with neuropathy (CMS/HCC) (Primary Dx); Arthritis of both feet; PVD (peripheral vascular disease) (CMS/HCC); Onychogryphosis; Xerosis cutis from Last 3 Months Social History Tobacco Use Types Packs/Day Years Used Date Smoking Tobacco: Never Assessed Sex and Gender Information Value Date Recorded Sex Assigned at Not on file Legal Sex Male 3:27 AM EST Gender Identity Not on file Sexual Orientation Not on file Last Filed Vital Signs Vital Sign Reading Time Taken Comments Blood Pressure - - Pulse - - Temperature - - Respiratory Rate - - Oxygen Saturation - - Inhaled Oxygen Concentration - - Weight 83.9 kg (185 lb) 07/30/2024 9:15 AM EDT Height 170.2 cm (5' 7 ) 07/30/2024 9:15 AM EDT Body Mass Index 28.98 07/30/2024 9:15 AM EDT Plan of Treatment Upcoming Encounters Date Type Department Care Team (Late st Contact Info) Description 10/01/2024 9:00 AM EDT Office Visit Orthopedic Surgery [facility] [address] [phone] Nathan Schmitt DPM [address] [address] Health Maintenance Due Date Last Done Comments Diabetes: Annual GFR (Glomer ular Filtration Rate) 1965 COVID-19 Vaccine (#1) 08/28/1968 Diabetes: Annual Foot Exam 08/28/1973 Diabetes: Annual Retina Eye Exam 08/28/1973 DTaP,Tdap,and Td Vaccines (1 - Tdap) 08/28/1982 Pneumococcal Vaccine: 50+ Ye ars (1 of 2 - PCV) 08/28/1982 Pneumococcal Vaccine: Pediat rics (0 to 5 Years) and At-Risk Patients (6 to 64 Years) (1 of 2 - PCV) 08/28/1982 Zoster Vaccines (1 of 2) 08/28/2013 Cholesterol Screening (Lipid Panel) 04/24/2022 Colorectal Cancer Screening: Colonoscopy 04/24/2022 Depression Screening 04/24/2022 HIV Screening 04/24/2022 Hepatitis C Screening 04/24/2022 Social Influencers of Health Screening 04/24/2022 RSV Immunization Adult Patilorena nts (1 - Risk 60-74 years 1-dose series) 2023 Influenza Vaccine (#1) 2024 Diabetes: Annual Urine Albumin-Creatinine Ratio (uACR) 05/23/2024 Diabetes: Blood Sugar Contro l Test (HGBA1C) 05/23/2024 Hypertension/CHF/CAD Annual BMP Blood Test 07/29/2024 HIB Vaccines Aged Out No longer eligi [...] patient's age to complete this topic Meningococcal B Vacine Aged Out No lo nger eligible based on patient's age to complete this topic RSV Immunization Patients Un chuck 20 months Aged Out No longer eligible b ased on patient's age to complete this topic Varicella Vaccines Aged Out No longer eligible based on patient's age to complete this topic Insurance MEDICA[place] - [place] Care Teams Director Of Security Relationship Specialty Start Date End Date Higinio Jones MD [address] [place] [address] [address] [place] PCP - General Internal Medicine 05/23/24
--- OUTSIDE RECORDS SUMMARY | 2024-08-21 14:57 | XMS_ITS ---
Author Organization [facility] Address [address] [place], [place] [phone] Care Team Providers Care Certified Orthoptist Name Role Phone [facility] Primary Care Provider Unavailable Kait Bear Unavailable Medications Medication SIG (Take, Route, Frequency, Duration) Notes Start Date End Date Status metFORMIN 500 mg 1 tab(s) orally 2 times a day for 30 days 11/14 3 refill Active Melatonin 5 mg 1 - [...] a day for 30 day(s) 12/15/2016 Active Depakote ER 500 mg 1 tab(s) orally bid 08/06 NO refill Active hydrOXYzine hydrochloride 25 mg 1 tab(s) orally 3 times a day PRN 08/06 NO refill Active Seroquel 300 mg 1 tab(s) orally @ H S 11/14 1 refill Active Encounters Encounter Location Date Provider Diagnosis [facility] [address] [place] [phone] 08/05/2024 Kait Bear Plan Of Treatment No Information Progress Notes * Vladimir GONZALEZ EDOB:1965 (58 yo M)Acc No.[id number]:08/05/2024 Case Management Patient:?Vladimir GONZALEZ Provider:?Kait Bear :1965???Age:58 Y???Sex:Male Evans e:08/05/2024 Address:[address] [place], [place] [id number] Pcp:[facility] Subjective: * Chief Complaints: * ??? * HPI: ???Social Service:?Referral Source?returning client.?Interpretation for medical provider?housing, Mail grain picker.? client came in seeking assistance with housing search.client filled out appliction for. ???SS Benefits Assessment:? Client came in filled out housing applications for [facility].Client is still in a transitional situation Client will bring in the updated proof of income to complete the applications. * Medical History:? * Medications:?Taking hydrOXYz ine [...] Notes to Pharmacist: 11/14 NO refills Objective: * Vitals:? Assessment: Plan: * Treatment: * Images: Billing Information: * Visit Code:? * Procedure Codes:? Care Plan Details* * Sign off status: Completed true * Provider:?Kait Bear Date:? Generated for Jessica lee/Faxing/eTransmitting on:?08/21/2024 02:56 PM EDT History and Physical Notes * HPI (History of Present Illness) Category Sub-Category Detail Notes Social Service Referral Source returning client Interpretation for medical provider hous ing, Mail grain picker
== END 2024-08-21 13:55 | disposition home or self-care (01) ==
LOC: HO.HMCH 12:25
PROVIDERS: PCP Internal Medicine; Visit Provider Internal Medicine
DX: E78.2 Mixed hyperlipidemia (principal); E11.9 Type 2 diabetes mellitus without complications; I10 Essential (primary) hypertension; E55.9 Vitamin D deficiency, unspecified; R97.20 Elevated prostate specific antigen [PSA]; F19.90 Other psychoactive substance use, unspecified, uncomplicated; G47.00 Insomnia, unspecified; F31.9 Bipolar disorder, unspecified; F17.200 Nicotine dependence, unspecified, uncomplicated; E66.3 Overweight

== ENCOUNTER → 2024-08-21 12:24 | Outpatient (BNVA) | payer OTHER, SELFPAY | PROVIDERS: PCP Internal Medicine; Visit Provider Internal Medicine | DX: E78.2 Mixed hyperlipidemia (principal); E11.9 Type 2 diabetes mellitus without complications; E55.9 Vitamin D deficiency, unspecified; I10 Essential (primary) hypertension; R97.20 Elevated prostate specific antigen [PSA]; F19.90 Other psychoactive substance use, unspecified, uncomplicated; G47.00 Insomnia, unspecified; F31.9 Bipolar disorder, unspecified; E66.3 Overweight; F17.200 Nicotine dependence, unspecified, uncomplicated; Z71.6 Tobacco abuse counseling | CPT/HCPCS: 96127; 99212 ==

== ENCOUNTER 2025-01-22 13:13 | Outpatient (AMB) | payer OTHER, SELFPAY ==
--- OUTSIDE RECORDS SUMMARY | 2024-10-10 10:20 | XMS_ITS ---
Author Organization [facility] Address [address] [place] [address] Care Team Providers Care Pipeline Executive Name Role Phone [facility] [facility] ( [facility]) Primary Care Provider [phone] Kait Bear [phone] Encounters Encounter Location Date Provider Diagnosis [facility] [address] [place] [phone] 10/10/2024 Kait Bear Plan Of Treatment Next Appt Details Provider Name:Kait Ravi, 01/27/2025 02:00:00 PM, [facility] [employer], [address] [place] [address], [phone], Progress Notes * Vladimir GONZALEZ EDOB:1965 (59 yo M)Acc No.[id number]:10/10/2024 Case Management Patient: Vladimir FISH Provider: Terri Bear :1965 A ge:59 Y S ex:Male Date:10/10/2024 Address:[address] [place], [place] [phone] Pcp:[facility] ([facility] Subjective: * Chief Complaints: * * Medical History: Objective: Assessment: Plan: * Treatment: * Images: Billing Information: * Visit Code: * Procedure Codes: Care Plan Details* * Electronic signature of Jonny Bear on 01/22/2025 at 03:32 PM EDT Sign off status: Pending * Provider: Terri Bear Date: 0 10/10/2024 Generated for Jessica lee/Jasiel/Giannaitting on: 0 01/22/2025 03:32 PM EDT
--- OUTSIDE RECORDS SUMMARY | 2024-12-31 05:00 | XMS_ITS ---
Author Organization [facility] Address [address] [place] [address] Care Team Providers Care Emissions Testing And Repair Technician Name Role Phone [facility] [facility] ( [facility]) Primary Care Provider [phone] Kait Bear [phone] Encounters Encounter Location Date Provider Diagnosis [facility] [address] [place] [phone] 12/31/2024 Kait Bear Plan Of Treatment Next Appt Details Provider Name:Kait Ravi, 01/27/2025 02:00:00 PM, [facility] [employer], [address] [place] [address], [phone], Progress Notes * Vladimir GONZALEZ EDOB:1965 (59 yo M)Acc No.[id number]:12/31/2024 Case Management Patient: Vladimir FISH Provider: Terri Bear :1965 A ge:59 Y S ex:Male Date:12/31/2024 Address:[address] [place], [place] [phone] Pcp:[facility] ([facility] Subjective: * Chief Complaints: * * Medical History: Objective: Assessment: Plan: * Treatment: * Images: Billing Information: * Visit Code: * Procedure Codes: Care Plan Details* * Electronic signature of Jonny Bear on 01/22/2025 at 03:32 PM EDT Sign off status: Pending * Provider: Terri Bear Date: 0 12/31/2024 Generated for Jessica lee/Jasiel/Giannaitting on: 0 01/22/2025 03:32 PM EDT
--- OUTSIDE RECORDS SUMMARY | 2025-01-07 07:00 | XMS_ITS ---
Author Organization [facility] Address [address] [place] [address] Care Team Providers Care Home Care Giver Name Role Phone [facility] [facility] ( [facility]) Primary Care Provider [phone] Kait Bear [phone] Encounters Encounter Location Date Provider Diagnosis [facility] [address] [place] [phone] 01/07/2025 Kait Bear Plan Of Treatment Next Appt Details Provider Name:Kait Ravi, 01/27/2025 02:00:00 PM, [facility], [address] [place] [address], [phone], Progress Notes * Vladimir GONZALEZ EDOB:1965 (59 yo M)Acc No.[id number]:01/07/2025 Case Management Patient: Vladimir FISH Provider: Terri Bear :1965 A ge:59 Y S ex:Male Date:01/07/2025 Address:[address] [place], [place] [phone] Pcp:[facility] ([facility]) [facility] Subjective: * Chief Complaints: * * Medical History: Objective: Assessment: Plan: * Treatment: * Images: Billing Information: * Visit Code: * Procedure Codes: Care Plan Details* * Electronic signature of Jonny Bear on 01/22/2025 at 03:32 PM EDT Sign off status: Pending * Provider: Terri Bear Date: 0 01/07/2025 Generated for Jessica lee/Jasiel/Giannaitting on: 0 01/22/2025 03:32 PM EDT
--- OUTSIDE RECORDS SUMMARY | 2025-01-17 05:00 | XMS_ITS ---
Author Organization [facility] Address [address] [place] [address] Care Team Providers Care Commercial Litigation Paralegal Name Role Phone [facility], Adult Medicine Clinic ( [facility]) Primary Care Provider [phone] Kait Bear Unavailable [phone] Medications Medication SIG (Take, Route, Frequency, Duration) Notes Start Date End Date Status metFORMIN 500 mg 1 tab(s) orally 2 times a day for 30 days 11/14 3 refill Active lisinopril 5 mg 1 tab(s) orally once a day for 30 day(s) 12/15/2016 Active hydroCHLOROthiazide 25 mg 1 tab(s) orall y once a day for 30 days 11/09 NO refills Active atorvastatin 20 mg 1 tab(s) orally once a day for 30 day(s) 11/14 NO refills 09/09/2016 Active Melatonin 5 mg 1 - 2 tab(s) orally once (at bedtime) for 30 days 11/28/2016 Active Seroquel 300 mg 1 tab(s) orally @ H S 11/14 1 refill Active Depakote ER 500 mg 1 tab(s) orally bid 08/06 NO refill Active hydrOXYzine hydrochloride 25 mg 1 tab(s) orally 3 times a day PRN 08/06 NO refill Active Encounters Encounter Location Date Provider Diagnosis [facility] [address] [place] [phone] 01/17/2025 Kait Bear Plan Of Treatment Next Appt Details Provider Name:Kait Ravi, 01/27/2025 02:00:00 PM, [facility] [employer], [address] [place] [address], [phone], Progress Notes * Vladimir GONZALEZ EDOB:1965 (59 yo M)Acc No.[id number]:01/17/2025 Case Management Patient: Vladimir FISH Provider: Terri Bear :1965 A ge:59 Y S ex:Male Date:01/17/2025 Address:[address] [place], [place] [phone] Pcp:[facility] ([facility] Subjective: * Chief Complaints: * * HPI: S ocial Service: Referral Source r [facility] client. Client was assisted in filling out [employer] application for [facility] [employer].Client was also assisted in filling out application for [facility] [employer]. * Medical History: * Medications: T aking hydrOXYzine hydrochloride 25 mg tablet 1 tab(s) orally [...] to Pharmacist: 11/14 NO refills Objective: * Vitals: Assessment: Plan: * Treatment: * Images: Billing Information: * Visit Code: * Procedure Codes: Care Plan Details* * Sign off status: Completed true * Provider: Terri Bear Date: 0 01/17/2025 Generated for Jessica lee/Jasiel/eTransmitting on: 0 01/22/2025 03:32 PM EDT History and Physical Notes * HPI (History of Present Illness) Category Sub-Category Detail Notes Category Not es Social Service Referral Source returning client Clmiah crespo was assisted in filling out [employer] application for [facility] [employer].Client was also assisted in filling out application for [facility] [place] [employer].
--- NOTE | 2025-01-22 13:15 | MHC.PC.OV ---
Vital Signs 01/22/25 13:16 01/22/25 13:55 Height 5 ft 5 in Weight 172 lb 8 oz BMI 28.7 BP 140/80 H 128/74 Blood Pressure Location Lt brachial Lt brachial Position Sitting Sitting Respiration 18 Pulse 94 Pulse Source Pulse Oximeter Temp 97.3 F Temp Source Temporal Artery Scan Pulse Oximetry (%) 96 Oxygen Delivery Method Room Air Intake Visit Reasons: PHYSICAL Corporate Human Resources Manager Required: No Accompanied by: Self / Same As Patient Allergies No Known Allergies (No Known Allergies*) Allergy (Verified 01/22/25 13:50) Medication List - Last Reconciled 01/22/25 by ELIZABETH Green amlodipine 5 mg PO DAILY atorvastatin 40 mg PO BEDTIME 90 days cholecalciferol (vitamin D3) 25 mcg PO DAILY clotrimazole 1% 1 appl topical BID lithium carbonate 600 mg PO BEDTIME melatonin 5 mg PO BEDTIME metformin 1,000 mg PO BID olanzapine 10 mg PO BEDTIME zolpidem 10 mg PO BEDTIME PRN Tobacco use date assessed: 01/22/25 Dental Screening Dental Screen Date: 01/22/25 Did you have a dental visit in the last 12 months?: Yes Did you have a dental problem in the last 6 months where you did not have access to dental care?: No Was dental information given to patient?: Patient has dentist HPI PHYSICAL HPI Details Annual physical Dentist: up to date Eye: up to date Snellen: Right: Left: Corrected vision: no STI screening: Colonoscopy:Reports that he is interested in getting this done at this time-will put in a referral Pap Smer: PHQ-9: Flu:does not take this COVID: took one dose of the moderna Tdap:due will get this in office today Diet:Regular Exercise: Reports walking up and down stairs. The patient is a 59-year-old male presenting for a follow-up visit to manage diabetes mellitus and hypertension, and to address bunion pain and earwax buildup. The patient has been managing diabetes mellitus, with a recent A1c result of 5.8, indicating good control. He reports adherence to medication and regular follow-ups with his healthcare provider. The patient experiences burning pain in both bunions, which may be related to neuropathy associated with diabetes. He reports a history of hypertension, which is currently well-managed with medication. The patient has been clean from drugs and alcohol for 14 months, indicating remission of substance use disorder. He has earwax buildup causing a popping sensation, and plans to use ear drops to alleviate the issue. He is currently in the [facility] and he is looking to get back in a sober house. This is on [facility] in [place], per patient. Therapist q2 weeks and psychiatrist once a month-has been working for him [facility] Medical History Vitamin D deficiency Snoring Hypersomnia Insomnia Chronic kidney disease, stage III (moderate) Albuminuria Diabetes mellitus with albuminuria Insomnia Overweight (BMI 25.0-29.9) Smoker Bipolar depression Substance use disorder Essential hypertension Diabetes mellitus Mixed hyperlipidemia Surgical History No pertinent past surgical history Family History Father No problems noted. Mother No problems noted. Brother No problems noted. Sister No problems noted. Brother No problems noted. Brother No problems noted. Brother No problems noted. Sister No problems noted. Other Mental health disorder Substance use disorder Social History Housing: Other Alcohol intake: never Patient Tobacco Use Status: Current everyday Tobacco user Cigarette Packs Per Day: 0.5 e-Cigarette/Vaping Use: Never Used Second Hand Smoke Exposure: Yes Substance Use Type: Crack/Cocaine service: No Current occupational status: disabled Current occupational exposures/hazards: No Cognitive needs: Yes Hearing needs: No Vision needs: No Questionnaire PHQ-9 Over the last 2 weeks, how often have you been bothered by any of the following problems? 1. Little interest or pleasure in doing things: not at all 2. Feeling down, depressed, or hopeless: not at all 3. Trouble falling or staying asleep, or sleeping too much: not at all 4. Feeling tired or having little energy: not at all 5. Poor appetite or overeating: not at all 6. Feeling bad about yourself - or that you are a failure or have let yourself or your family down: not at all 7. Trouble concentrating on things, such as reading the newspaper or watching television: not at all 8. Moving or speaking so slowly that other people could have noticed. Or the opposite - being so fidgety or restless that you have been moving around a lot more than usual: not at all 9. Thoughts that you would be better off or of hurting yourself in some way: not at all Total score: 0 Depression Screening Interpretation: Positive Depression Screening Follow-up: Existing condition and In treatment Depression Screening Done: Yes Source: Developed by Drs. Mehdi Randolph, Sabrina Gonzalez, Tutu Eckert and colleagues, with an educational camryn from [employer]. Thrive Questionnaire Date Thrive assessed: 01/22/25 I am a: Patient What is your living situation today?: I have a steady place to live Within the past 12 months, did the food you bought not last and you didn't have the money to get more?: Never true Within the past 12 months, did you worry whether your food would run out before you got money to buy more?: Never true Do you have trouble paying for medicines?: No Do you have trouble getting transportation to medical appointments?: No Do you have trouble paying your heating and electricity bill?: No Do you have trouble taking care of your child, family member or friend?: No Do you have trouble with day-to-day activities such as bathing, preparing meals, shopping, managing finances, etc.?: No Are you currently unemployed and looking for a job?: No Are you interested in more education?: No Please select the resources that you would like help with: None Currently or been in a relationship where the following occur: No concerns reported THRIVE Score: 0 AUDIT C Alcohol Use Questionnaire (AUDIT-C) 1. How often do you have a drink containing alcohol?: Never Total Score: 0 NORMA-7 AMB Questionnaire NORMA-7 Date NORMA - 7 assessed: 01/22/25 Feeling nervous, anxious, or on edge: 0 = Not at all Not being able to stop or control worryin = Not at all Worrying too much about different things: 0 = Not at all Trouble relaxin = Not at all Being so restless that it is hard to sit still: 0 = Not at all Becoming easily annoyed or irritable: 0 = Not at all Feeling afraid as if something awful might happen: 0 = Not at all Total NORMA-7 score (0-4 normal; 5-9 mild; 10-14 moderate; 15-21 severe): 0 Source: Developed by Drs. Mehdi Randolph, Sabrina Gonzalez, Tutu Eckert and colleagues, with an educational camryn from [employer]. Review of Systems Const Denies headache(s) Eyes Denies loss of vision ENT Denies vertigo, Denies dizziness, Denies headache(s) and Denies sore throat Card Denies chest pain, Denies leg edema and Denies lightheadedness Resp Denies cough, Denies hemoptysis and Denies wheezing GI Denies abdominal pain, Denies melena, Denies constipation, Denies diarrhea and Denies vomiting Denies dysuria, Denies urinary frequency and Denies urinary urgency Musc Denies arthralgias, Denies joint swelling, Denies numbness and Denies tingling Neuro Denies Abnormal speech present, Denies behavioral changes, Denies vertigo, Denies dizziness, Denies headache(s), Denies loss of vision, Denies memory loss, Denies numbness and Denies tingling Psych Denies anxiety, Denies behavioral changes, Denies depression, Denies memory loss and Denies panic attacks Jcarlos/Lymph Denies easy bleeding and Denies easy bruising Aller/Immun Denies wheezing Physical exam (Primary Care) Vital Signs: Last Vital Signs Temp 97.3 F 01/22/25 13:16 Pulse 94 01/22/25 13:16 Resp 18 01/22/25 13:16 BP 128/74 01/22/25 13:55 Pulse Ox 96 01/22/25 13:16 Oxygen Delivery Method Room Air 01/22/25 13:16 BMI result Body Mass Index 28.7 Tobacco/Smoking Status: Tobacco use Status Tobacco use date assessed 01/22/25 01/22/25 13:17 Patient Tobacco Use Status Current everyday Tobacco 01/22/25 13:17 e-Cigarette/Vaping Use Never Used 01/22/25 13:17 PHQ-9: PHQ-9 Score PHQ-9: Total score 0 01/22/25 14:07 Depression Screening Interpretation: Positive Depression Screening Follow-up: Existing condition and In treatment Thrive Assessment: Date of Thrive Assessment Date Thrive assessed 01/22/25 01/22/25 13:17 Currently or been in a relationship where the following occur: No concerns reported Const General: healthy appearing, no acute distress, alert and awake Nutritional Appearance: well nourished Orientation/consciousness: oriented to person, oriented to place and oriented to time HENMT Ears: TM's normal bilaterally General nose exam: Normal nasal mucous membranes and turbinates present Eyes Conjunctivae: conjunctivae normal Sclerae: sclerae normal Pupils: Equal, round and reactive pupils present Neck Neck: Yes no lymphadenopathy and Yes no JVD Thyroid: Thyroid normal Carotids: no bruits Resp Effort & Inspection: normal respiratory effort and not tachypneic Auscultation: no crackles, no rales, no rhonchi and no wheezes Cardio Rate: regular rate Rhythm: regular rhythm Heart sounds: no murmurs and normal S1 and S2 GI Palpation (GI): Soft to palpation, nontender, no hepatomegaly and no splenomegaly Auscultation: normal bowel sounds Skin General skin exam: no rashes or lesions noted and dry skin Neuro General: oriented to person, oriented to place and oriented to time Cranial nerves: Yes Equal, round and reactive pupils present Speech: No Abnormal speech present Gait exam (Neuro): Normal gait present Motor exam (neuro): no tremor noted Deep tendon reflexes (DTR's): Right triceps reflex intensity grade: 2+, Left triceps reflex intensity grade: 2+, Rt Biceps (C5, C6): 2+, Left biceps reflex intensity grade: 2+, Right brachioradialis reflex intensity grade: 2+, Left brachioradialis reflex intensity grade: 2+, Right patellar reflex intensity grade: 2+ and Left patellar reflex intensity grade: 2+ Extrem Right upper extremity: full ROM Left upper extremity: full ROM Right lower extremity: full ROM; no edema Left lower extremity: full ROM; no edema Psych Mental Status: mental status grossly normal Speech and movement: Normal speech and movement present Affect: normal affect Attitude: cooperative Thought process: Normal thought process present Results AMB Hemoglobin A1c AMB Hemoglobin A1c 5.8 % Last Edit by Moni Lucero MA on 01/22/25 13:57 Immunizations Tenivac (PF) 5 Lf unit-2 Lf unit/0.5 mL intramuscular syringe Performing Provider: ELIZABETH Green [facility] Administered by: Ashley Youssef LPN on 01/22/25 14:06 Dose Route Admin Location Dispensed Lot Number Expiration Date [facility] Business Risk Analyst 0.5 mL IM Right Deltoid 0.5 mL [id number] 09/18/26 [id number] [employer] Total Dispensed Waste 0.5 mL 0 % VIS Given Date VIS Provided VIS Publication Date 01/22/25 Single Vaccine 20 Eligibility Eligibility Date Funding Source Not [facility] Eligible 01/22/25 Private Results Reviewed Results Reviewed: Laboratory Last Values Hgb A1c (Clinic) 5.8 % (4.0-6.0) 01/22/25 13:45 Coding Level of Care Code Est Pt Prev Care 40-64y(85852) Diagnoses Annual physical exam Z00.00 Smoker F17.200 Overgrown toenails L60.2 Elevated PSA measurement R97.20 Albuminuria R80.9 Colon cancer screening Z12.11 Impacted cerumen of both ears H61.23 Vitamin D deficiency E55.9 Overweight (BMI 25.0-29.9) E66.3 Type 2 diabetes mellitus with other specified complication, without long-term current use of insulin E11.69 Diabetes mellitus skilled nursing insulin use: without manager intermediate use Diabetes mellitus complication status: with other specified complication Mixed hyperlipidemia E78.2 Essential hypertension I10 Substance use disorder F19.90 Bipolar depression F31.9 Major depressive disorder, remission status unspecified, unspecified whether recurrent F32.9 Depression Type: major depressive disorder Major depression recurrence: unspecified whether recurrent Active/Remission status: remission status unspecified Generalized anxiety disorder F41.1 Time Spent (min) 41 Assessment & Plan Assessment & Plan (1) Annual physical exam: Code(s): Z00.00 - Encounter for general adult medical examination without abnormal findings Category: Medical Plan: Preventative guidelines in labs that completed in September reviewed with the patient. Patient is due for colonoscopy-he finally consent to have this done in a GI referral was placed. Tdap given in office today (2) Smoker: Code(s): F17.200 - Nicotine dependence, unspecified, uncomplicated Category: Social Hx Plan: Smoking cessation encouraged (3) Overgrown toenails: Code(s): L60.2 - Onychogryphosis Category: Medical Plan: The patient was recently seen by Podiatry who took care of this. (4) Elevated PSA measurement: Code(s): R97.20 - Elevated prostate specific antigen [PSA] Category: Medical Plan: Patient PSA was noted to be elevated. Rechecked continue to be elevated but was trending down. The patient wanted to be hold off ongoing to Urology due to not having any symptoms and would like this to be rechecked in the future instead. (5) Albuminuria: Code(s): R80.9 - Proteinuria, unspecified Category: Medical Plan: Normalized and stable (6) Colon cancer screening: Code(s): Z12.11 - Encounter for screening for malignant neoplasm of colon Category: Medical Plan: GI referral placed for colonoscopy (7) Impacted cerumen of both ears: Code(s): H61.23 - Impacted cerumen, bilateral Category: Medical Plan: Debrox ear drops ordered. The patient we will schedule a follow up appointment for ear flush. He is aware that he has to use the drops for at least 4 days straight prior to coming in for this appointment. (8) Vitamin D deficiency: Code(s): E55.9 - Vitamin D deficiency, unspecified Category: Medical Plan: Continue cholecalciferol 25 mcg daily (9) Overweight (BMI 25.0-29.9): Code(s): E66.3 - Overweight Category: Medical Plan: Encouraged to exercise for at least 30 minutes a day/5 days a week Healthy eating discussed. Encouraged to eat fruits/vegetables, protein-fish/baked chicken, and to avoid salty/fried foods, sweets, caffeine and carbohydrates. Encouraged to increase water intake 6-8 glasses a day (10) Type 2 diabetes mellitus: Code(s): E11.9 - Type 2 diabetes mellitus without complications Category: Medical Qualifiers: Diabetes mellitus skilled nursing insulin use: without manager intermediate use Diabetes mellitus complication status: with other specified complication Qualified Code(s): E11.69 - Type 2 diabetes mellitus with other specified complication Plan: A1c 5.8% in office today. Goal is less than 7% Reinforced low sugar/carbohydrate diet and activity as tolerated Continue metformin a 1000 mg b.i.d. (11) Mixed hyperlipidemia: Code(s): E78.2 - Mixed hyperlipidemia Category: Medical Plan: Triglycerides 196, total cholesterol 148, LDL 93 HDL 21 on 10/09/2024 Discussed lifestyle modifications including dietary changes and physical activity Continue atorvastatin 40 mg at bedtime (12) Essential hypertension: Code(s): I10 - Essential (primary) hypertension Category: Medical Plan: Blood pressure 128/74 within goal Reinforced low-salt diet Continue amlodipine 5 mg daily (13) Substance use disorder: Code(s): F19.90 - Other psychoactive substance use, unspecified, uncomplicated Category: Medical Plan: The patient has been in remission from substance use for 14 months. Continued support and monitoring are recommended. (14) Bipolar depression: Code(s): F31.9 - Bipolar disorder, unspecified Category: Medical Plan: Continue lithium carbonate 600 mg at bedtime, olanzapine 10 mg at bedtime Therapist q2 weeks and psychiatrist once a month-has been working for him Follow up with Psychiatry as scheduled (15) Depression: Code(s): F32.A - Depression, unspecified Category: Medical Qualifiers: Depression Type: major depressive disorder Major depression recurrence: unspecified whether recurrent Active/Remission status: remission status unspecified Qualified Code(s): F32.9 - Major depressive disorder, single episode, unspecified Plan: Encouraged CBT Denies SI/HI (16) Generalized anxiety disorder: Code(s): F41.1 - Generalized anxiety disorder Category: Medical Plan: Same as above Plan Plan Patient was informed and verbally consented to the use of an ambient scribe for clinic note documentation during this visit. 1. Diabetes Mellitus The patient's diabetes mellitus is well-controlled with a recent A1c of 5.8%. He is advised to continue his current medication regimen and maintain regular follow-ups. 2. Bunion Pain The patient reports burning pain in both bunions, possibly related to diabetic neuropathy. Further evaluation and management options were not discussed in detail during this visit. 3. Earwax Buildup The patient has earwax buildup causing discomfort. He plans to use ear drops and follow up for ear flushing if necessary. 4. Hypertension The patient's hypertension is currently well-managed with medication. Regular monitoring and adherence to medication are advised. 5. Substance Use Disorder In Remission The patient has been in remission from substance use for 14 months. Continued support and monitoring are recommended. Orders: Orders AMB Hemoglobin A1c Today E11.9 - Type 2 diabetes mellitus without complications Td Immunization Today Z23 - Encounter for immunization Referrals Gastroenterology Referral Z12.11 - Encounter for screening for malignant neoplasm of colon Medications: New carbamide peroxide 6.5% (Debrox) 5 drps otic (ears) Q12H 15 mL 0RF 4 days
[2025-01-22 13:16] VITALS: BP 140/80; PULSE 94; RESP 18; TEMP 36.3; O2SAT 96; BMI 28.7
[2025-01-22 13:55] VITALS: BP 128/74
--- OUTSIDE RECORDS SUMMARY | 2025-01-22 15:33 | XMS_ITS | Clinical Summary ---
Author Organization [address] [facility] Address [address] [place] [address] Phone Care Team Providers Care Journal Entry Audit Clerk Name Role Phone Higinio Jones MD Primary Care Provider + [phone] Allergies No known active allergies Medications amLODIPine [...] (chronic kidney disease) 07/29/2024 Diabetes mellitus with album inuria ([facility] V24, [facility] V28) 07/29/2024 Over weight 07/29/2024 Smoker 07/29/2024 Bipolar 1 disorder ([facility] V24, [facility] V28) Essential hypertension 07/29/2024 Diabetes mellitus ([facility] V24, [facility] V28) 02/2025 Encounters Date Type Department Care Team Description 12/03/2024 9:15 AM EDT Office Visit Orthopedic Surgery [facility] [address] [phone] Nathan Schmitt DPM Controlled type 2 diabetes with neuropathy ([facility] V24, [facility] V28) (Primary Dx); PVD (peripheral vascular disease) ([facility] V24); Arthritis of both feet; Xerosis cutis; Dermatophytosis, nail from Last 3 Months Social History Tobacco [...] - - Weight 83.9 kg (185 lb) 10/01/2024 8:55 AM EDT Height 170.2 cm (5' 7.01 ) 10/01/2024 8:55 AM ED T Body Mass Index 28.97 10/01/2024 8:55 AM EDT Plan of Treatment Upcoming Encounters Date Type Department Care Team (Late st Contact Info) Description 02/04/2025 9:00 AM EDT Office Visit Orthopedic Surgery [facility] [address] [phone] Nathan Schmitt DPM [address] [id number] Health Maintenance Due Date Last Done Comments Diabetes: Annual GFR (Glomer ular Filtration Rate) 1965 COVID-19 Vaccine (#1) 08/28/1968 Diabetes: Annual Foot Exam 08/28/1973 Diabetes: Annual Retina Eye Exam 08/28/1973 DTaP,Tdap,and Td Vaccines (1 - Tdap) 08/28/1982 Pneumococcal Vaccine: 50+ Ye ars (1 of 2 - PCV) 08/28/1982 Zoster Vaccines (1 of 2) 08/28/1982 Cholesterol Screening (Lipid Panel) 04/24/2022 Colorectal Cancer Screening: Colonoscopy 04/24/2022 HIV Screening 04/24/2022 Hepatitis C Screening 04/24/2022 Social Influencers of Health Screening 04/24/2022 RSV Immunization Adult Patie nts (1 - Risk 60-74 years 1-dose series) 2023 Depression Screening 05/22/2024 Diabetes: Annual Urine Albumin-Creatinine Ratio (uACR) 05/23/2024 Diabetes: Blood Sugar Contro l Test (HGBA1C) 05/23/2024 Hypertension/CHF/CAD Annual BMP Blood Test 07/29/2024 Influenza Vaccine (#1) 2025 HIB Vaccines Aged Out No longer eligi [...] age to complete this topic Meningococcal B Vaccine Aged Out No l onger eligible based on patient's age to complete this topic RSV Immunization Patients Un chuck 20 months Aged Out No longer eligible b ased on patient's age to complete this topic Varicella Vaccines Aged Out No longer eligible based on patient's age to complete this topic Insurance [place] Care Teams Journal Entry Audit Clerk Relationship Specialty Start Date End Date Higinio Jones MD [address] [place] [address] [address] [place] PCP - General Internal Medicine 05/23/24
--- OUTSIDE RECORDS SUMMARY | 2025-01-22 15:33 | XMS_ITS | Patient Health Record ---
Author Organization [facility] Address [address] [place] [address] Care Team Providers Care Die Attacher Name Role Phone [facility], [facility] ( [facility]) Primary Care Provider [phone] Kait Bear Unavailable Reason For Referral No Information Medications Medication SIG (Take, Route, Frequency, Duration) Notes Start Date End Date Status Seroquel 300 mg 1 tab(s) orally @ H S 11/14 1 refill Active metFORMIN 500 mg 1 tab(s) orally 2 times a day for 30 days 11/14 3 refill Active Depakote ER 500 mg 1 tab(s) orally bid 08/06 NO refill Active lisinopril 5 mg 1 tab(s) [...] a day PRN 08/06 NO refill Active Immunizations Vaccine Route Administration Date Status Comme nts Twinrix Hep A/Hep B Unknown 02/16/2010 Administered [facility]x [facility] Hepatitis B (20 or more) Unknown 03/19/2010 Administered hx [facility] Hepatitis B (20 or more) Unknown 07/19/2010 Administered hx [facility] Influenza Unknown 03/07/2011 Administered hx [facility] [...] Problem Type II diabetes mellitus without complication (907530696) Type 2 diabetes mellitus without complications (E11.9) Active confirmed Problem Mental disorder (18516539) 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 Problem Alcohol abuse (75831424) Alcohol abuse, uncomplicated (F10.10) Active confirmed Problem Cocaine abuse (74181756) Cocaine abuse, uncomplicated (F14.10) Active confirmed Problem Tobacco user (805632096) Nicotine dependence, unspecified, uncomplicated (F17.200) Active confirmed Problem Insomnia (132901012) Insomnia, unspecified (G47.00) Active confirmed Problem Essential hypertensi on (61486753) Essential (primary) hypertension (I10) Active confirmed Problem Normal body mass ind ex (28819011) Body mass index (BMI) 22.0-22.9, adult (Z68.22) Active confirmed Problem Pure hypercholesterolemia (721975081) Pure hypercholestero lemia, unspecified (E78.00) Active confirmed Encounters Encounter Location Date Provider Diagnosis [facility] [address] [place] [address] [phone] 01/26/2024 Kait Bear [facility] [phone] 02/02/2024 Kait Bear [facility] [phone] 02/09/2024 Kait Bear [facility] [address] [place] [address] [id number] 02/13/2024 Kait Bear [facility] [phone] 03/11/2024 Kait Bear [facility] [address] [place] [address] [id number] 08/05/2024 Kait Bear [facility] [address] [place] [address] [id number] 09/26/2024 Kait Bear [facility] [address] [place] [address] [id number] 10/03/2024 Kait Bear [facility] [address] [place] [address] [id number] 12/17/2024 Kait Bear [facility] [address] [place] [address] [id number] 01/17/2025 Kait Bear Plan Of Treatment Pending Test Test Name Order Date Blood Sugar/finger stick 08/25/2016 PPD (Tuberculosis skin test) 05/13/2016 Next Appt Details Provider Name:Kait Ravi, 01/27/2025 02:00:00 PM, [facility], [address] [place] [address], [phone], Insurance Providers Payer Name Payer Address Payer Phone Subscriber Number Group Number Insured Name Patient Relationship to Insured Coverage Start Date Coverage End Date [place] Medicaid Standard [address] [place] [address] [phone] [id number] Vladimir Vizcarra Self - patient is the insured Medical (General) History Medical History History ICD Code tobacco use depression w/anxiety elevated cholesterol Hx crack use hx bipolar hx htn-03/2016 on HCTZ 25mg hx ETOH 09.09.2016 ASCVD 10 year risk 35.8% Surgical History Surgery Date(Month/Year) inguinal hernia repair, bilat as child hernia repair 1977 Hospitalization History Reason Date(Month/Year) [place] [facility]psych 03/2015 [facility] 02/2015 [facility], hernia repair
== END 2025-01-22 14:24 | disposition home or self-care (01) ==
LOC: HO.HMCH 13:13
PROVIDERS: PCP Internal Medicine
DX: Z00.00 Encounter for general adult medical examination without abnormal findings (principal); E11.69 Type 2 diabetes mellitus with other specified complication; F31.9 Bipolar disorder, unspecified; Z68.28 Body mass index [BMI] 28.0-28.9, adult; E66.3 Overweight; F17.200 Nicotine dependence, unspecified, uncomplicated; L60.2 Onychogryphosis; R97.20 Elevated prostate specific antigen [PSA]; R80.9 Proteinuria, unspecified; H61.23 Impacted cerumen, bilateral; Z23 Encounter for immunization

== ENCOUNTER → 2025-01-22 13:13 | Outpatient (BNVA) | payer OTHER, SELFPAY | PROVIDERS: PCP Internal Medicine | DX: Z00.00 Encounter for general adult medical examination without abnormal findings (principal); M21.612 Bunion of left foot; M21.611 Bunion of right foot; I10 Essential (primary) hypertension; L60.2 Onychogryphosis; R97.20 Elevated prostate specific antigen [PSA]; R80.9 Proteinuria, unspecified; H61.23 Impacted cerumen, bilateral; E55.9 Vitamin D deficiency, unspecified; E66.3 Overweight; E11.69 Type 2 diabetes mellitus with other specified complication; E78.2 Mixed hyperlipidemia; F19.90 Other psychoactive substance use, unspecified, uncomplicated; F31.9 Bipolar disorder, unspecified; F41.1 Generalized anxiety disorder; F17.210 Nicotine dependence, cigarettes, uncomplicated; Z23 Encounter for immunization; Z68.28 Body mass index [BMI] 28.0-28.9, adult | CPT/HCPCS: 83036; 90471; 90714; 99396 ==

== ENCOUNTER 2025-01-30 12:24 | Outpatient (REF) | payer OTHER, SELFPAY ==
--- OUTSIDE RECORDS SUMMARY | 2024-12-31 05:00 | XMS_ITS ---
Author Organization [facility] Address [address] [place] [address] Care Team Providers Care Security Operations Center Analyst Name Role Phone [facility] ( [facility]) Primary Care Provider [phone] Kait Bear [phone] Encounters Encounter Location Date Provider Diagnosis [facility] [address] [place] [phone] 12/31/2024 Kait Bear Plan Of Treatment No Information Progress Notes * Vladimir GONZALEZ EDOB:1965 (59 yo M)Acc No.[id number]:12/31/2024 Case Management Patient: Concha MAYUR Vladimir Cruz Provider: Terri Bear :1965 A ge:59 Y S ex:Male Date:12/31/2024 Address:[address] [place], [place] [phone] Pcp:[facility] ([facility]) [facility] Subjective: * Chief Complaints: * * Medical History: Objective: Assessment: Plan: * Treatment: * Images: Billing Information: * Visit Code: * Procedure Codes: Care Plan Details* * Electronic signature of Jonny Bear on 01/30/2025 at 04:38 PM EDT Sign off status: Pending * Provider: Terri Bear Date: 12/31/2024 Generated for Printi ng/Faxing/eTransmitting on: 0 01/30/2025 04:38 PM EDT
--- OUTSIDE RECORDS SUMMARY | 2025-01-07 07:00 | XMS_ITS ---
Author Organization [facility] Address [address] [place] [address] Care Team Providers Care Fruit Preserver Name Role Phone [facility] [facility] ( [facility]) Primary Care Provider [phone] Kait Bear Encounters Encounter Location Date Provider Diagnosis [facility] [address] [place] [phone] 01/07/2025 Kait Bear Plan Of Treatment No Information Progress Notes * Vladimir GONZALEZ EDOB:1965 (59 yo M)Acc No.[id number]:01/07/2025 Case Management Patient: Concha MAYUR Vladimir Cruz Provider: Terri Bear :1965 A ge:59 Y S ex:Male Date:01/07/2025 Address:[address] [place], [place] [phone] Pcp:[facility] ([facility]) [facility] Subjective: * Chief Complaints: * * Medical History: Objective: Assessment: Plan: * Treatment: * Images: Billing Information: * Visit Code: * Procedure Codes: Care Plan Details* * Electronic signature of Jonny Bear on 01/30/2025 at 04:38 PM EDT Sign off status: Pending * Provider: Terri Bear Date: 01/07/2025 Generated for Printi ng/Faxing/eTransmitting on: 01/30/2025 04:38 PM EDT
--- OUTSIDE RECORDS SUMMARY | 2025-01-27 10:00 | XMS_ITS ---
Author Organization [facility] Address [address] [place] [address] Care Team Providers Care Reserve Officer Name Role Phone [facility] [place] [facility] ( [facility]) Primary Care Provider [phone] Kait Bear Encounters Encounter Location Date Provider Diagnosis [facility] [address] [place] [address] [phone] 01/27/2025 Kait Bear Plan Of Treatment No Information Progress Notes * Vladimir GONZALEZ EDOB:1965 (59 yo M)Acc No.[id number]:01/27/2025 Case Management Patient: Concha MAYUR Vladimir Cruz Provider: Terri Bear :1965 A ge:59 Y S ex:Male Date:01/27/2025 Address:[address] [place], [place] [id number] Pcp:[facility] ([facility] Subjective: * Chief Complaints: * * Medical History: Objective: Assessment: Plan: * Treatment: * Images: Billing Information: * Visit Code: * Procedure Codes: Care Plan Details* * Electronic signature of Jonny Bear on 01/30/2025 at 04:39 PM EDT Sign off status: Pending * Provider: Terri Bear Date: 01/27/2025 Generated for Printi ng/Faxing/eTransmitting on: 01/30/2025 04:39 PM EDT
[2025-01-30 12:43] LABS: MANUAL DIFF FLAG NO
[2025-01-30 13:41] LABS: Hematocrit 38.3 % (42.0-52.0); Hemoglobin 12.4 g/dl (14.0-18.0); Imm Gran Abs Auto 0.03 X10*3/uL (0.00-0.03); Imm Gran Pct Auto 0.4 % (0.0-0.4); Lymphocytes Absolute Auto 1.7 X10*3/uL (1.2-4.9); Mean Corpuscular HGB Conc 32.4 g/dl (31.0-36.0); Mean Corpuscular Hemoglobin 29.2 pg (27.0-33.0); Mean Corpuscular Volume 90.1 fL (80.0-98.0); NRBC Abs Auto 0.000 X10*3/uL (0.0-0.012); NRBC Pct Auto 0.0 /100WBC (0.0-0.2); Platelet Count 296 X10*3/uL (160-400); Red Blood Count 4.25 X10*6/uL (4.60-5.80); White Blood Count 8.5 X10*3/uL (4.8-10.8)
[2025-01-30 13:49] LABS: Appearance Urine Clear; Glucose Urine UA Negative (Negative); PH 6.5 (5.0-9.0); Specific Gravity - Urine 1.015 (1.005-1.025); UMIC TRIGGER UACC YES
[2025-01-30 14:19] LABS: Alanine Aminotransferase 16 U/L (0-40); Albumin Level 4.3 g/dL (3.5-5.0); Alkaline Phosphatase 95 U/L (39-117); Anion Gap 11 (12-20); Aspartate Amino Transferase 19 U/L (5-37); Blood Urea Nitrogen 9 mg/dL (9-16); Calcium 9.5 mg/dL (8.4-10.2); Carbon Dioxide 28 mmol/L (22-29); Chloride 105 mmol/L (96-108); Cholesterol 165 mg/dL (<200); Estimated Glomerular Filt Rate > 60; HDL Cholesterol 23 mg/dL (>40); Potassium 3.9 mmol/L (3.3-5.1); Sodium 140 mmol/L (135-145); Total Protein 7.1 g/dL (6.5-8.0); Triglycerides 182 mg/dL (<150)
[2025-01-30 14:30] LABS: PSA,Total (Free>4and<10) 5.54 ng/mL (0.00-4.00)
[2025-01-30 14:52] LABS: Lithium 0.73 mmol/L (0.60-1.20)
[2025-01-30 15:02] LABS: Microalbum/Creatinine Ratio Ur 324.1 ug/mg cr (<30)
--- OUTSIDE RECORDS SUMMARY | 2025-01-30 16:39 | XMS_ITS | Patient Health Record ---
Author Organization [facility] Address [address] [place] [address] Care Team Providers Care Navy Diver Name Role Phone [facility] [facility] ( [facility]) Primary Care Provider [phone] Kait Bear Unavailable Reason For Referral No [...] A/Hep B Unknown 02/16/2010 Administered hx from [facility] Hepatitis B (20 or more) Unknown 03/19/2010 Administered hx [facility] Hepatitis B (20 or more) Unknown 07/19/2010 Administered hx [facility] Influenza Unknown 03/07/2011 Administered hx [facility] [...] Problem Type II diabetes mellitus without complication (286313719) Type 2 diabetes mellitus without complications (E11.9) Active confirmed Problem Mental disorder (36040872) 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 Problem Alcohol abuse (90626508) Alcohol abuse, uncomplicated (F10.10) Active confirmed Problem Cocaine abuse (20467301) Cocaine abuse, uncomplicated (F14.10) Active confirmed Problem Tobacco user (030282850) Nicotine dependence, unspecified, uncomplicated (F17.200) Active confirmed Problem Insomnia (800760707) Insomnia, unspecified (G47.00) Active confirmed Problem Essential hypertensi on (63057284) Essential (primary) hypertension (I10) Active confirmed Problem Normal body mass ind ex (21000844) Body mass index (BMI) 22.0-22.9, adult (Z68.22) Active confirmed Problem Pure hypercholesterolemia (712832943) Pure hypercholestero lemia, unspecified (E78.00) Active confirmed Encounters Encounter Location Date Provider Diagnosis [facility] [address] [place] [address] [phone] 02/02/2024 Kait Bear [facility] [address] [place] [address] [phone] 02/09/2024 Kait Bear [facility] [phone] 02/13/2024 Kait Bear [facility] [address] [place] [address] [phone] 03/11/2024 Kait Bear [facility] [phone] 08/05/2024 Kait WhalenBreonna [facility] [address] [place], [place] [phone] 09/26/2024 Kait Bear [facility] [address] [place], [place] [phone] 10/03/2024 Kait Bear [facility] [address] [place], [place] [phone] 12/17/2024 Kait Bear [facility] [address] [place], [place] [phone] 01/17/2025 Kait Bear Plan Of Treatment Pending Test Test Name Order Date Blood Sugar/finger stick 08/25/2016 PPD (Tuberculosis skin test) 05/13/2016 Insurance Providers Payer Name Payer Address Payer Phone Subscriber Number Group Number Insured Name Patient Relationship to Insured Coverage Start Date Coverage End Date [place] Medicaid Standard [address] [place] [address] [phone] [id number] Vladimir Vizcarra Self - patient is the insured Medical (General) History Medical History History ICD Code tobacco use depression w/anxiety elevated cholesterol Hx crack use hx bipolar hx htn-03/2016 on HCTZ 25mg hx ETOH 4..2016 ASCVD 10 year risk 35.8% Surgical History Surgery Date(Month/Year) inguinal hernia repair, bilat as child hernia repair 1977 Hospitalization History Reason Date(Month/Year) [place] [facility]/psych 03/2015 [facility] 02/2015 [facility], hernia repair
[2025-02-01 06:24] LABS: Free Prostate Spec Ag 0.7 ng/mL; Percent Free Prostate Spec Ag 14 % (calc) (>25)
== END 2025-01-30 12:25 | disposition home or self-care (01) ==
LOC: HO.LAB 12:24
PROVIDERS: PCP Internal Medicine; Visit Provider Internal Medicine
DX: R97.20 Elevated prostate specific antigen [PSA] (principal); H61.23 Impacted cerumen, bilateral; E11.9 Type 2 diabetes mellitus without complications; E78.00 Pure hypercholesterolemia, unspecified; E55.9 Vitamin D deficiency, unspecified; D64.9 Anemia, unspecified; F31.9 Bipolar disorder, unspecified; R30.0 Dysuria; Z79.84 Long term (current) use of oral hypoglycemic drugs; Z79.899 Other long term (current) drug therapy
CPT/HCPCS: 36415; 69210; 80053; 80061; 80178; 81001; 82043; 82306; 82570; 83036; 84153; 84154; 84443; 85025

== ENCOUNTER 2025-01-30 14:34 | Outpatient (AMB) | payer OTHER, SELFPAY ==
--- NOTE | 2025-01-30 14:48 | A.OFFPC_ITS ---
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: No Accompanied by: Self / Same As Patient Allergies No Known Allergies (No Known Allergies*) Allergy (Verified 01/30/25 14:50) Medication List - Last Reconciled 01/30/25 by Ninoska Childs PA-C amlodipine 5 mg PO DAILY atorvastatin 40 mg PO BEDTIME 90 days carbamide peroxide 6.5% (Debrox) 5 drps otic (ears) Q12H 4 days cholecalciferol (vitamin D3) 25 mcg PO DAILY clotrimazole 1% 1 appl topical BID lithium carbonate 600 mg PO BEDTIME melatonin 5 mg PO BEDTIME metformin 1,000 mg PO BID olanzapine 10 mg PO BEDTIME zolpidem 10 mg PO BEDTIME PRN Tobacco use date assessed: 01/30/25 Dental Screening Dental Screen Date: 01/30/25 Did you have a dental visit in the last 12 months?: Yes Did you have a dental problem in the last 6 months where you did not have access to dental care?: No Was dental information given to patient?: Patient has dentist HPI ear flush HPI Details 59-year-old male coming to the office fo r ear cleaning. He reports bilateral ear clogged feeling. [facility] Medical History Vitamin D deficiency Snoring Hypersomnia Insomnia Chronic kidney disease, stage III (moderate) Albuminuria Diabetes mellitus with albuminuria Insomnia Overweight (BMI 25.0-29.9) Smoker Bipolar depression Substance use disorder Essential hypertension Diabetes mellitus Mixed hyperlipidemia Surgical History No pertinent past surgical history Family History Father No problems noted. Mother No problems noted. Brother No problems noted. Sister No problems noted. Brother No problems noted. Brother No problems noted. Brother No problems noted. Sister No problems noted. Other Mental health disorder Substance use disorder Social History Housing: Other Alcohol intake: never Patient Tobacco Use Status: Current everyday Tobacco user Cigarette Packs Per Day: 0.5 e-Cigarette/Vaping Use: Never Used Second Hand Smoke Exposure: Yes Substance Use Type: Crack/Cocaine service: No Current occupational status: disabled Current occupational exposures/hazards: No Cognitive needs: Yes Hearing needs: No Vision needs: No Questionnaire PHQ-9 Over the last 2 weeks, how often have you been bothered by any of the following problems? 1. Little interest or pleasure in doing things: not at all 2. Feeling down, depressed, or hopeless: not at all 3. Trouble falling or staying asleep, or sleeping too much: not at all 4. Feeling tired or having little energy: not at all 5. Poor appetite or overeating: not at all 6. Feeling bad about yourself - or that you are a failure or have let yourself or your family down: not at all 7. Trouble concentrating on things, such as reading the newspaper or watching television: not at all 8. Moving or speaking so slowly that other people could have noticed. Or the opposite - being so fidgety or restless that you have been moving around a lot more than usual: not at all 9. Thoughts that you would be better off or of hurting yourself in some way: not at all Total score: 0 Depression Screening Interpretation: Positive Depression Screening Follow-up: Existing condition and In treatment Depression Screening Done: Yes Source: Developed by Drs. Mehdi Randolph, Sabrina Gonzalez, Tutu Eckert and colleagues, with an educational camryn from [employer]. Thrive Questionnaire Date Thrive assessed: 01/30/25 I am a: Patient What is your living situation today?: I have a steady place to live Within the past 12 months, did the food you bought not last and you didn't have the money to get more?: Never true Within the past 12 months, did you worry whether your food would run out before you got money to buy more?: Never true Do you have trouble paying for medicines?: No Do you have trouble getting transportation to medical appointments?: No Do you have trouble paying your heating and electricity bill?: No Do you have trouble taking care of your child, family member or friend?: No Do you have trouble with day-to-day activities such as bathing, preparing meals, shopping, managing finances, etc.?: No Are you currently unemployed and looking for a job?: No Are you interested in more education?: No Please select the resources that you would like help with: None Currently or been in a relationship where the following occur: No concerns reported THRIVE Score: 0 AUDIT C Alcohol Use Questionnaire (AUDIT-C) 1. How often do you have a drink containing alcohol?: Never Total Score: 0 NORMA-7 AMB Questionnaire NORMA-7 Date NORMA - 7 assessed: 01/30/25 Feeling nervous, anxious, or on edge: 0 = Not at all Not being able to stop or control worryin = Not at all Worrying too much about different things: 0 = Not at all Trouble relaxin = Not at all Being so restless that it is hard to sit still: 0 = Not at all Becoming easily annoyed or irritable: 0 = Not at all Feeling afraid as if something awful might happen: 0 = Not at all Total NORMA-7 score (0-4 normal; 5-9 mild; 10-14 moderate; 15-21 severe): 0 Source: Developed by Drs. Mehdi Randolph, Sabrina Gonzalez, Tutu Eckert and colleagues, with an educational camryn from [employer]. Review of Systems ENT Details: Ear clogged feeling bilaterally Physical exam (Primary Care) Vital Signs: Last Vital Signs Pulse 96 01/30/25 14:52 BP 140/64 H 01/30/25 14:52 Pulse Ox 97 01/30/25 14:52 Oxygen Delivery Method Room Air 01/30/25 14:52 BMI result Body Mass Index 28.8 Tobacco/Smoking Status: Tobacco use Status Tobacco use date assessed 01/30/25 01/30/25 14:52 Patient Tobacco Use Status Current everyday Tobacco 01/30/25 14:52 e-Cigarette/Vaping Use Never Used 01/30/25 14:52 PHQ-9: PHQ-9 Score PHQ-9: Total score 0 01/30/25 15:48 Depression Screening Interpretation: Positive Depression Screening Follow-up: Existing condition and In treatment Thrive Assessment: Date of Thrive Assessment Date Thrive assessed 01/30/25 01/30/25 14:52 Currently or been in a relationship where the following occur: No concerns reported Const General: cooperative, healthy appearing, comfortable and no acute distress [facility] Head: Yes normocephalic Ears: hearing grossly normal bilaterally General nose exam: Normal external nose present Resp Effort & Inspection: normal respiratory effort Cardio Rate: regular rate Skin General skin exam: no rashes or lesions noted Psych Affect: normal affect Attitude: cooperative Insight: Good insight present (Psych) Judgement: Good judgement present (Psych) Office Procedures Cerumen Removal From which ear canal was the cerumen removed: bilateral Removal: irrigation and cerumen loop/spoon Notes: patient tolerated procedure well, no complications and ear canal clear [id number] Irrigation/Lavage Coding Level of Care Code Procedure Only Diagnoses Impacted cerumen of both ears H61.23 CPT Codes Office Procedure - CPT: 68267-Jts Irrigation/Lavage ([id number]) Assessment & Plan Assessment & Plan (1) Impacted cerumen of both ears: Code(s): H61.23 - Impacted cerumen, bilateral Category: Medical Plan: Bilateral ears were cleaned using a combination of lighted curette and irrigat ion. Patient tolerated the procedure well without complication. TMs were visualized as intact with well aerated middle ear spaces without perforation or retraction. Follow up as needed for this concern Plan This note was constructed using voice recognition software. While every effort has been made to ensure accuracy and lead burner helper, still areas may have been included sometimes these areas may affect the content or meeting of the given symptoms. Total time spent caring for the patient today was 20 minutes. This includes time spent before the visit reviewing the chart, time spent during the visit, and time spent after the visit and documentation. Medications: Refilled cholecalciferol (vitamin D3) 25 mcg PO DAILY 30 caps 3RF
[2025-01-30 14:52] VITALS: BP 140/64; PULSE 96; O2SAT 97; BMI 28.8
--- OUTSIDE RECORDS SUMMARY | 2025-01-30 18:16 | XMS_ITS | Clinical Summary ---
Author Organization [facility] Address [address] [place] [address] Phone Care Team Providers Care Aircraft Machinist Name Role Phone Higinio Jones MD Primary Care Provider + [phone] Allergies No known active allergies Medications amLODIPine [...] disease) 07/29/2024 Diabetes mellitus with album inuria ([facility] V24, [facility] V28) 07/29/2024 Over weight 07/29/2024 Smoker 07/29/2024 Bipolar 1 disorder ([facility] [place]24, [facility] V28) Essential hypertension 07/29/2024 Diabetes mellitus ([facility] V24, [facility] V28) 02/2025 Encounters Date Type Department Care Team Description 12/03/2024 9:15 AM EDT Office Visit Orthopedic Surgery [facility] [address] [phone] Nathan Schmitt DPM Controlled type 2 diabetes with neuropathy ([facility] V24, [facility] V28) (Primary Dx); PVD (peripheral vascular disease) ([facility] V24); Arthritis of both feet; Xerosis cutis; [...] 9:00 AM EDT Office Visit Orthopedic Surgery [facility] [address] [phone] Nathan Schmitt DPM [address] [address] Health Maintenance Due Date Last Done Comments [...] to complete this topic Insurance [place] Care Teams Aircraft Machinist Relationship Specialty Start Date End Date Higinio Jones MD [address] [place] [address] [address] [place] PCP - General Internal Medicine 05/23/24
== END 2025-01-30 16:03 | disposition home or self-care (01) ==
LOC: HO.HMCH 14:34
PROVIDERS: PCP Internal Medicine
DX: H61.23 Impacted cerumen, bilateral (principal)